=== PATIENT | female | born 2000 | race Two or more races ===

== ENCOUNTER 2019-02-20 10:04 | Emergency (ER) | payer SELFPAY ==
[~2019-02-20] VITALS: Ht 162.6 cm; Wt 49.0 kg
[2019-02-20 10:14] VITALS: BP 129/73
--- NOTE | 2019-02-20 10:40 | PHYS DOC ---
Past Medical History Past Medical History: No Pertinent History Past Surgical History: No Surgical History Alcohol Use: None Drug Use: None Adult General Chief Complaint Chief Complaint: HEADACHE HPI HPI Patient is a 18 year old female presents to the ED complaining of cough �2 days ago. States that she has been coughing up white stuff. She has pain when she coughs. Describes the pain as uncomfortable. Rates the pain as 4 out of 10. Associated symptoms include subjective fever and congestion. Patient does not smoke. Denies headache, sore throat, rash, abdominal pain, nausea/vomiting, diarrhea or dizziness. Review of Systems Review of Systems Constitutional: Complains of subjective fever. Denies chills [] Eyes: Denies change in visual acuity, redness, or eye pain [] HENT: Denies nasal congestion or sore throat [] Respiratory: Complains of cough. Denies shortness of breath [] Cardiovascular: No additional information not addressed in HPI [] GI: Denies abdominal pain, nausea, vomiting, bloody stools or diarrhea [] : Denies dysuria or hematuria [] Musculoskeletal: Denies back pain or joint pain [] Integument: Denies rash or skin lesions [] Neurologic: Denies headache, focal weakness or sensory changes [] All other systems were reviewed and found to be within normal limits, except as documented in this note. Current Medications Current Medications Current Medications Medications (Trade) Dose Ordered Sig/Aleyda Start Time Stop Time Status Last Admin Dose Admin Diphenhydramine HCl (Benadryl) 25 mg 1X ONCE 02/20/19 11:00 02/20/19 11:01 DC 02/20/19 10:51 25 MG Ketorolac Tromethamine (Toradol 30mg Vial) 30 mg 1X ONCE 02/20/19 11:00 02/20/19 11:01 DC 02/20/19 10:51 30 MG Ondansetron HCl (Zofran Odt) 4 mg 1X ONCE 02/20/19 11:00 02/20/19 11:01 DC 02/20/19 10:51 4 MG Allergies Allergies Allergies Coded Allergies Type Severity Reaction Last Updated Verified No Known Drug Allergies 04/25/14 No Physical Exam Physical Exam Constitutional: Well developed, well nourished, no acute distress, non-toxic appearance. [] HENT: Normocephalic, atraumatic, bilateral external ears normal, oropharynx moist, no oral exudates, nose normal. [] Eyes: PERRLA, EOMI, conjunctiva normal, no discharge. [] Neck: Normal range of motion, no tenderness, supple, no stridor. [] Cardiovascular:Heart rate regular rhythm, no murmur [] Lungs & Thorax: Bilateral breath sounds clear to auscultation. Productive cough.[] Abdomen: Bowel sounds normal, soft, no tenderness, no masses, no pulsatile masses. [] Skin: Warm, dry, no erythema, no rash. [] Back: No tenderness, no CVA tenderness. [] Extremities: No tenderness, no cyanosis, no clubbing, ROM intact, no edema. [] Neurologic: Alert and oriented X 3, normal motor function, normal sensory function, no focal deficits noted. [] Psychologic: Affect normal, judgement normal, mood normal. [] Current Patient Data Vital Signs Vital Signs Date Time Temp Pulse Resp B/P (MAP) Pulse Ox O2 Delivery O2 Flow Rate FiO2 02/20/19 10:14 99.9 129 16 129/73 (91) 96 Room Air 99.9 Lab Values Laboratory Tests Test 02/20/19 10:37 POC Urine HCG, Qualitative Hcg negative (Negative) EKG EKG [] Radiology/Procedures Radiology/Procedures PROCEDURE: CHEST AP ONLY EXAM: CHEST 1 VIEW History: Cough COMPARISON: None available. TECHNIQUE: Single portable radiograph of the chest FINDINGS: The cardiac silhouette is unremarkable. Questionable minimal right middle lobe airspace opacities. The costophrenic sulci are clear and well demarcated. IMPRESSION: Questionable minimal right middle lobe airspace opacities likely atelectasis or infiltrate. Follow-up to resolution.[] Course & Med Decision Making Course & Med Decision Making Pertinent Labs and Imaging studies reviewed. (See chart for details) []Discussed imaging findings with patient. Patient's pain improved in the ED. States she's feeling much better. Heart rate improved to low 90's. O2 saturation is 99%. Patient is not tachypneic or tachycardic. We'll treat outpatient with azithromycin, prior inhaler and Tessalon Perles. Discussed symptomatic treatmen t, [id number] medications and follow-up with PCP later this week. Provided contact information/education. Discussed reasons to return to the ED. Patient understands and agrees with plan. Dragon Disclaimer Ward Disclaimer This electronic medical record was generated, in whole or in part, using a voice recognition dictation system. Departure Departure Impression: Primary Impression: Pneumonia Disposition: 01 HOME, SELF-CARE Condition: STABLE Referrals: NO PCP (PCP) Patient Instructions: Pneumonia, Adult Scripts Albuterol Sulfate (Proair Hfa) 8.5 Gm Hfa.aer.ad 1 PUFF INH PRN Q6HRS PRN for SHORTNESS OF BREATH, #1 INHALER Prov: CELINA RIVERA 02/20/19 Benzonatate (TESSALON PERLE) 100 Mg Capsule 1 CAP PO TID, #21 CAP Prov: CELINA RIVERA 02/20/19 Azithromycin (AZITHROMYCIN PACKET) 1 Gm Packet 1 PACKET PO ONCE, #1 PACKET Prov: CELINA RIVERA 02/20/19 CELINA RIVERA Feb 20, 2019 10:40
--- NOTE | 2019-02-20 10:56 | RAD ---
EXAM: CHEST 1 VIEW History: Cough COMPARISON: None available. TECHNIQUE: Single portable radiograph of the chest FINDINGS: The cardiac silhouette is unremarkable. Questionable minimal right middle lobe airspace opacities. The costophrenic sulci are clear and well demarcated. IMPRESSION: Questionable minimal right middle lobe airspace opacities likely atelectasis or infiltrate. Follow-up to resolution. Electronically signed by: Clarence Monahan MD (02/20/2019 10:53 AM) [id number]
[2019-02-20] MEDS ORDERED: KETOROLAC 30 MG/ML VIAL. IM ONE (11:00)
[2019-02-20] MEDS ORDERED: ONDANSETRON ODT 4 MG TAB.RAPDIS. PO ONE (11:00)
[2019-02-20] MEDS ORDERED: diphenhydrAMINE HCL 25 MG CAPSULE PO ONE (11:00)
[2019-02-20] MEDS ORDERED: ALBU2.5V8 INH (11:17)
[2019-02-20] MEDS ORDERED: BENZ100C PO (11:17)
[2019-02-20] MEDS ORDERED: AZIT1PAC9 PO (11:17)
== END 2019-02-20 11:52 | disposition home or self-care (01) ==
LOC: ER 10:04
DX: J18.9 Pneumonia, unspecified organism (principal)
CPT/HCPCS: 71045; 81025; 96372; 99283; J1885; Q0162; Q0163

== ENCOUNTER 2019-02-23 15:37 | Inpatient (IN) | payer SELFPAY ==
[~2019-02-23] VITALS: Ht 162.6 cm; Wt 47.6 kg
[~2019-02-23 15:37] MED LIST: ALBU2.5V8 INH; AZIT1PAC9 PO; BENZ100C PO
[2019-02-23] MEDS ORDERED: cefTRIAXone IV Push 1 GM VIAL. IVP ONE (16:15)
[2019-02-23] MEDS ORDERED: ACETAMINOPHEN 500 MG TABLET PO ONE (16:15)
[2019-02-23 16:19] LABS: BASO % 0 % (0-3); EOS % 0 % (0-3); HEMATOCRIT 41.3 % (36.0-47.0); HEMOGLOBIN 14.4 g/dL (12.0-15.5); LYMPH # 0.9 x10^3/uL (1.0-4.8); LYMPH % 7 % (24-48); MEAN CORPUSCULAR HEMOGLOBIN 30 pg (25-35); MEAN CORPUSCULAR HGB CONC 35 g/dL (31-37); MEAN CORPUSCULAR VOLUME 86 fL (79-100); MONO # 0.3 x10^3/uL (0.0-1.1); MONO % 3 % (0-9); NEUT # 11.1 x10^3/uL (1.8-7.7); NEUT % 90 % (31-73); PLATELET COUNT 383 x10^3/uL (140-400); RED BLOOD COUNT 4.82 x10^6/uL (3.50-5.40); RED CELL DISTRIBUTION WIDTH 12.2 % (11.5-14.5); WHITE BLOOD COUNT 12.4 x10^3/uL (4.0-11.0)
[2019-02-23] MEDS: IV NORMAL SALINE 1000ML BAG 1,000 ML IV SCH ×2 (16:23→17:07)
[2019-02-23 16:35] LABS: CALCIUM 10.1 mg/dL (8.5-10.1); CREATININE 0.8 mg/dL (0.6-1.0); GFR 92.4; POTASSIUM 4.1 mmol/L (3.5-5.1)
[2019-02-23 16:43] LABS: % BANDS 2 % (0-9); % LYMPHS 6 % (24-48); % MONOS 3 % (0-10); % SEGS 89 % (35-66); PLT ESTIMATE ADEQUATE (ADEQUATE)
[2019-02-23 16:53] LABS: ALBUMIN 3.5 g/dL (3.4-5.0); ALBUMIN/GLOBULIN RATIO 0.6 (1.0-1.7); TOTAL BILIRUBIN 0.7 mg/dL (0.2-1.0); TOTAL PROTEIN 9.6 g/dL (6.4-8.2)
--- NOTE | 2019-02-23 17:05 | RAD ---
CHEST PA LATERAL Clinical indications: Fever and cough. COMPARISON: February 20, 2019. Findings: No acute lung infiltrate or pleural effusion or pulmonary edema or lung mass or pneumothorax is seen. The heart size, pulmonary vasculature, mediastinum and both elin are unremarkable. The osseous structures appear intact. Impression: No acute radiographic abnormality is seen. Electronically signed by: Kevin Lund MD (02/23/2019 5:02 PM) [facility]
--- NOTE | 2019-02-23 18:35 | PHYS DOC ---
Past Medical History Past Medical History: No Pertinent History (REGLA MALLOY APRN) Past Surgical History: No Surgical History (REGLA MALLOY APRN) Alcohol Use: None Drug Use: None (REGLA MALLOY APRN) Adult General Chief Complaint Chief Complaint: SHORTNESS OF BREATH HPI HPI Patient is a 18 year old female who presents with shortness of breath and a cough that began 6 days ago. Patient states she was seen in the ED 3 days ago, was diagnosed with pneumonia and sent home on azithromycin. She states the medication is not relieving her symptoms. She states now she has a fever. (REGLA MALLOY APRN) Review of Systems Review of Systems Constitutional: Reports fever Eyes: Denies change in visual acuity, redness, or eye pain [] HENT: Denies nasal congestion or sore throat [] Respiratory: Reports cough and shortness of breath Cardiovascular: No additional information not addressed in HPI [] GI: Denies abdominal pain, nausea, vomiting, bloody stools or diarrhea [] : Denies dysuria or hematuria [] Musculoskeletal: Denies back pain or joint pain [] Integument: Denies rash or skin lesions [] Neurologic: Denies headache, focal weakness or sensory changes [] All other systems were reviewed and found to be within normal limits, except as documented in this note. (REGLA MALLOY APRN) Current Medications Current Medications Current Medications Medications (Trade) Dose Ordered Sig/Aleyda Start Time Stop Time Status Last Admin Dose Admin Acetaminophen (Tylenol) 1,000 mg 1X ONCE 02/23/19 16:15 02/23/19 16:16 DC 02/23/19 16:23 1,000 MG Ceftriaxone Sodium (Rocephin) 1 gm 1X ONCE 02/23/19 16:15 02/23/19 16:16 DC 02/23/19 16:23 1 GM Levofloxacin/ Dextrose 100 ml @ 100 mls/hr 1X ONCE 02/23/19 16:15 02/23/19 17:14 DC 02/23/19 16:23 100 MLS/HR Sodium Chloride 1,000 ml @ 1,000 mls/hr Q1H 02/23/19 16:07 02/23/19 17:45 DC 02/23/19 17:23 1,000 MLS/HR (MILLIE GALEANA DO) Allergies Allergies Allergies Coded Allergies Type Severity Reaction Last Updated Verified No Known Drug Allergies 04/25/14 No (MILLIE GALEANA DO) Physical Exam Physical Exam Constitutional: Well developed, well nourished, no acute distress, non-toxic appearance. [] HENT: Normocephalic, atraumatic, bilateral external ears normal, oropharynx moist, no oral exudates, nose normal. [] Eyes: PERRLA, EOMI, conjunctiva normal, no discharge. [] Neck: Normal range of motion, no tenderness, supple, no stridor. [] Cardiovascular: Tachycardic on arrival to the ED. Lungs & Thorax: Patient is short of breath. Abdomen: Bowel sounds normal, soft, no tenderness, no masses, no pulsatile masses. [] Skin: Warm, dry, no erythema, no rash. [] Back: No tenderness, no CVA tenderness. [] Extremities: No tenderness, no cyanosis, no clubbing, ROM intact, no edema. [] Neurologic: Alert and oriented X 3, normal motor function, normal sensory function, no focal deficits noted. [] Psychologic: Affect normal, judgement normal, mood normal. [] (REGLA MALLOY APRN) Current Patient Data Vital Signs Vital Signs Date Time Temp Pulse Resp B/P (MAP) Pulse Ox O2 Delivery O2 Flow Rate FiO2 02/23/19 18:14 99 14 159/79 (105) 99 Room Air 02/23/19 15:42 99.4 99.4 (MILLIE GALEANA DO) Lab Values Laboratory Tests Test 02/23/19 16:14 White Blood Count 12.4 x10^3/uL (4.0-11.0) H Red Blood Count 4.82 x10^6/uL (3.50-5.40) Hemoglobin 14.4 g/dL (12.0-15.5) Hematocrit 41.3 % (36.0-47.0) Mean Corpuscular Volume 86 fL (79-100) Mean Corpuscular Hemoglobin 30 pg (25-35) Mean Corpuscular Hemoglobin Concent 35 g/dL (31-37) Red Cell Distribution Width 12.2 % (11.5-14.5) Platelet Count 383 x10^3/uL (140-400) Neutrophils (%) (Auto) 90 % (31-73) H Lymphocytes (%) (Auto) 7 % (24-48) L Monocytes (%) (Auto) 3 % (0-9) Eosinophils (%) (Auto) 0 % (0-3) Basophils (%) (Auto) 0 % (0-3) Neutrophils # (Auto) 11.1 x10^3/uL (1.8-7.7) H Lymphocytes # (Auto) 0.9 x10^3/uL (1.0-4.8) L Monocytes # (Auto) 0.3 x10^3/uL (0.0-1.1) Eosinophils # (Auto) 0.0 x10^3/uL (0.0-0.7) Basophils # (Auto) 0.0 x10^3/uL (0.0-0.2) Segmented Neutrophils % 89 % (35-66) H Band Neutrophils % 2 % (0-9) Lymphocytes % 6 % (24-48) L Monocytes % 3 % (0-10) Platelet Estimate Adequate (ADEQUATE) Sodium Level 138 mmol/L (136-145) Potassium Level 4.1 mmol/L (3.5-5.1) Chloride Level 100 mmol/L (98-107) Carbon Dioxide Level 25 mmol/L (21-32) Anion Gap 13 (6-14) Blood Urea Nitrogen 5 mg/dL (7-20) L Creatinine 0.8 mg/dL (0.6-1.0) Estimated GFR (Cockcroft-Gault) 92.4 BUN/Creatinine Ratio 6 (6-20) Glucose Level 105 mg/dL (70-99) H Lactic Acid Level 1.4 mmol/L (0.4-2.0) Calcium Level 10.1 mg/dL (8.5-10.1) Total Bilirubin 0.7 mg/dL (0.2-1.0) Aspartate Amino Transferase (AST) 22 U/L (15-37) Alanine Aminotransferase (ALT) 16 U/L (14-59) Alkaline Phosphatase 85 U/L (46-116) Total Protein 9.6 g/dL (6.4-8.2) H Albumin 3.5 g/dL (3.4-5.0) Albumin/Globulin Ratio 0.6 (1.0-1.7) L Procalcitonin 0.12 ng/mL (0.00-0.10) H Laboratory Tests 02/23/19 16:14 Laboratory Tests 02/23/19 16:14 Microbiology 02/23/19 Blood Culture - Preliminary, Resulted NO GROWTH AFTER 1 DAY (MILLIE GALEANA DO) EKG EKG [] (REGLA MALLOY APRN) Radiology/Procedures Radiology/Procedures []PROCEDURE: CHEST PA & LATERAL CHEST PA LATERAL Clinical indications: Fever and cough. COMPARISON: February 20, 2019. Findings: No acute lung infiltrate or pleural effusion or pulmonary edema or lung mass or pneumothorax is seen. The heart size, pulmonary vasculature, mediastinum and both elin are unremarkable. The osseous structures appear intact. Impression: No acute radiographic abnormality is seen. Electronically signed by: Zoey Lund MD (02/23/2019 5:02 PM) [place] [id number] DICTATED and SIGNED BY: OZEY LUND MD DATE: 02/23/191701 (REGLA MALLOY APRN) Course & Med Decision Making Course & Med Decision Making Pertinent Labs and Imaging studies reviewed. (See chart for details) This is a 18-year-old female patient presented to the ED today with shortness of breath, cough, symptoms began 6 days ago, was seen in the ED 3 days ago, diag nosed with pneumonia, discharged and azithromycin. Presents today with a fever stating symptoms have not improved. CBC with a WBC of 12.4. CMP no acute findings lactic is normal, pro-calcitonin is slightly up at 0.12. Chest x-ray is negative for any acute findings. Temperature 99.4 on arrival to the ED, heart rate 111, BP 129/71 Patient was started on the sepsis protocol including IV fluids and antibiotics. Will be admitted for IV antibiotics. Spoke with Dr. Dixon accepted patient for admission (REGLA MALLOY APRN) Dragon Disclaimer Dragon Disclaimer This electronic medical record was generated, in whole or in part, using a voice recognition dictation system. (REGLA MALLOY APRN) Departure Departure Impression: Primary Impression: Fever Additional Impressions: Shortness of breath Community acquired pneumonia Disposition: ADMITTED INPATIENT Condition: STABLE Referrals: NO PCP (PCP) Attending Signature Attending Signature I have reviewed the PA/MEDICAL INFORMATION SPECIALIST's note and plan of care. I was available for consultation as needed during the patient's visit in the emergency department. I agree with the clinical impression, plan, and disposition. (MILLIE GALEANA DO) Problem Qualifiers Primary Impression: Fever Fever type: unspecified Qualified Codes: R50.9 - Fever, unspecified Additional Impressions: Community acquired pneumonia Laterality: right Lung location: middle lobe of lung Qualified Codes: J18.1 - Lobar pneumonia, unspecified organism REGLA MALLOY APRN Feb 23, 2019 18:35 MILLIE GALEANA DO Feb 24, 2019 18:09
[2019-02-23] MEDS ORDERED: ONDANSETRON PF 4 MG/2 ML VIAL. IV PRN (18:45)
[2019-02-23] MEDS ORDERED: ONDANSETRON PF 4 MG/2 ML VIAL. IV ONE (19:30)
--- NOTE | 2019-02-23 20:00 | NUR ---
ADMISSION Pt admitted to room 569. Assessment completed see assessment. Pt able to walk to bathroom on own. Having dry heaves at this time and requests medication for nausea, gave Zofran. Encouraged patient to refrain from eating or drinking until nausea subsides, pt V/U. Instructed on POC. Denies any needs or concerns at this time.
[2019-02-23] MEDS ORDERED: guaiFENesin/CODEINE 100mg/10mg 5 ML LIQUID PO PRN (22:00)
[2019-02-23] MEDS ORDERED: IPRATRPIUM/ALBUTEROL 0.5/2.5MG 3 ML NEBU. NEB ONE (22:00)
--- NOTE | 2019-02-23 22:01 | PDOC1 ---
History and Physical Date of Admission Date of Admission DATE: 02/23/19 TIME: 21:58 Source Source: Chart review, Patient History of Present Illness History of Present Illness Ms. Hartley, is a 18 year old female who presents with shortness of breath and a cough that began 6 days ago. Patient states she was seen in the ED 3 days ago, was diagnosed with pneumonia and sent home on azithromycin. fever and cough today, she does not feel well, has been nauseated since in the ER. was compliant with azithro. no travel no sick contacts Past Medical History Cardiovascular: No pertinent hx Pulmonary: No pertinent hx GI: No pertinent hx Heme/Onc: No pertinent hx Hepatobiliary: No pertinent hx Family History Family History: No Significant Social History Smoke: No ALCOHOL: none Drugs: None Current Problem List Problem List Problems Medical Problems: (1) Community acquired pneumonia Status: Acute (2) Fever Status: Acute (3) Shortness of breath Status: Acute Current Medications Current Medications Current Medications Sodium Chloride 1,000 ml @ 1,000 mls/hr Q1H IV Last administered on 02/23/19at 17:23; Start 02/23/19 at 16:07; Stop 02/23/19 at 17:45; Status DC Ceftriaxone Sodium (Rocephin) 1 gm 1X ONCE IVP Last administered on 02/23/19at 16:23; Start 02/23/19 at 16:15; Stop 02/23/19 at 16:16; Status DC Levofloxacin/ Dextrose 100 ml @ 100 mls/hr 1X ONCE IV Last administered on 02/23/19at 16:23; Start 02/23/19 at 16:15; Stop 02/23/19 at 17:14; Status DC Acetaminophen (Tylenol) 1,000 mg 1X ONCE PO Last administered on 02/23/19at 16:23; Start 02/23/19 at 16:15; Stop 02/23/19 at 16:16; Status DC Ondansetron HCl (Zofran) 4 mg PRN Q8HRS PRN IV NAUSEA/VOMITING; Start 02/23/19 at 18:45; Stop 02/24/19 at 18:44 Acetaminophen (Tylenol) 650 mg PRN Q4HRS PRN PO FEVER; Start 02/23/19 at 18:45; Stop 02/24/19 at 18:44 Ondansetron HCl (Zofran) 4 mg 1X ONCE IV Last administered on 02/23/19at 20:02; Start 02/23/19 at 19:30; Stop 02/23/19 at 19:31; Status DC Albuterol/ Ipratropium (Duoneb) 3 ml RTQID NEB ; Start 02/24/19 at 08:00 Albuterol/ Ipratropium (Duoneb) 3 ml 1X ONCE NEB ; Start 02/23/19 at 22:00; Stop 02/23/19 at 22:01 Ceftriaxone Sodium (Rocephin) 1 gm Q24H IVP ; Start 02/24/19 at 16:00 Doxycycline Hyclate (Vibra-Tab) 100 mg BID PO ; Start 02/23/19 at 22:00 Active Scripts Active Proair Hfa (Albuterol Sulfate) 8.5 Gm Hfa.aer.ad 1 Puff INH PRN Q6HRS PRN Tessalon Perle (Benzonatate) 100 Mg Capsule 1 Cap PO TID Azithromycin Packet (Azithromycin) 1 Gm Packet 1 Packet PO ONCE Allergies Allergies: Coded Allergies: No Known Drug Allergies (Unverified , 04/25/14) ROS General: YES: Chills, Fatigue, Malaise, Appetite PSYCHOLOGICAL ROS: No: Anxiety, Behavioral Disorder, Concentration difficultie, Decreased libido, Depression, Disorientation, Hallucinations, Hostility, Irritablity, Memory difficulties, Mood Swings, Obsessive thoughts, Other Eyes: No Blurry vision, No Decreased vision, No Double vision, No Dry eyes, No Excessive tearing, No Eye Pain, No Itchy Eyes, No Loss of vision, No Photophobi a, No Scotomata, No Uses contacts, No Uses glasses, No Other HEENT: No: Heacaches, Visual Changes, Hearing change, Nasal congestion, Nasal discharge, Oral lesions, Sinus pain, Sore Throat, Epistaxis, Sneezing, Snoring, Tinnitus, Vertigo, Vocal changes, Other Respiratory: YES: Cough, Shortness of breath, SOB with excertion, Sputum Changes; No: Hemoptysis, Orthopnea, Pleuritic Pain, Stridor, Tachypnea, Wheezing, Other Cardiovascular: No Chest Pain, No Palpitations, No Orthopnea, No Paroxysmal Noc. Dyspnea, No Edema, No Lt Headedness, No Other Gastrointestinal: Yes Nausea, Yes Abdominal Pain; No Vomiting, No Diarrhea, No Constipation, No Melena, No Hematochezia, No Other Genitourinary: No Dysuria, No Frequency, No Incontinence, No Hematuria, No Retention, No Discharge, No Urgency, No Pain, No Flank Pain, No Other, No , No , No , No , No , No , No Musculoskeletal: No Gait Disturbance, No Joint Pain, No Joint Stiffness, No Joint Swelling, No Muscle Pain, No Muscular Weakness, No Pain In:, No Swelling In:, No Other Neurological: No Behavorial Changes, No Bowel/Bladder ControlChng, No Confusion, No Dizziness, No Gait Disturbance, No Headaches, No Impaired Coord/balance, No Memory Loss, No Numbness/Tingling, No Seizures, No Speech Problems, No Tremors, No Visual Changes, No Weakness, No Other Skin: No Dry Skin, No Eczema, No Hair Changes, No Lumps, No Mole Changes, No Mottling, No Nail Changes, No Pruritus, No Rash, No Skin Lesion Changes, No Other, No Acne Physical Exam General: Alert, mild distress HEENT: PERRLA, Mucous membr. moist/pink, Other (tongue is pierced) Lungs: Clear to auscultation, Normal air movement Heart: S1S2, no gallops, no murmurs Abdomen: Normal bowel sounds, Soft Rectal Exam: not examined Extremities: No clubbing, No cyanosis, No edema Skin: No rashes, No significant lesion Neuro: Normal gait, Sensation intact Psych/Mental Status: Mood NL Vitals Vitals Vital Signs Date Time Temp Pulse Resp B/P (MAP) Pulse Ox O2 Delivery O2 Flow Rate FiO2 02/23/19 19:44 103 14 127/44 (71) 99 Room Air 02/23/19 15:42 99.4 99.4 Labs Labs Laboratory Tests Test 02/23/19 16:14 White Blood Count 12.4 x10^3/uL (4.0-11.0) Red Blood Count 4.82 x10^6/uL (3.50-5.40) Hemoglobin 14.4 g/dL (12.0-15.5) Hematocrit 41.3 % (36.0-47.0) Mean Corpuscular Volume 86 fL (79-100) Mean Corpuscular Hemoglobin 30 pg (25-35) Mean Corpuscular Hemoglobin Concent 35 g/dL (31-37) Red Cell Distribution Width 12.2 % (11.5-14.5) Platelet Count 383 x10^3/uL (140-400) Neutrophils (%) (Auto) 90 % (31-73) Lymphocytes (%) (Auto) 7 % (24-48) Monocytes (%) (Auto) 3 % (0-9) Eosinophils (%) (Auto) 0 % (0-3) Basophils (%) (Auto) 0 % (0-3) Neutrophils # (Auto) 11.1 x10^3/uL (1.8-7.7) Lymphocytes # (Auto) 0.9 x10^3/uL (1.0-4.8) Monocytes # (Auto) 0.3 x10^3/uL (0.0-1.1) Eosinophils # (Auto) 0.0 x10^3/uL (0.0-0.7) Basophils # (Auto) 0.0 x10^3/uL (0.0-0.2) Segmented Neutrophils % 89 % (35-66) Band Neutrophils % 2 % (0-9) Lymphocytes % 6 % (24-48) Monocytes % 3 % (0-10) Platelet Estimate Adequate (ADEQUATE) Sodium Level 138 mmol/L (136-145) Potassium Level 4.1 mmol/L (3.5-5.1) Chloride Level 100 mmol/L (98-107) Carbon Dioxide Level 25 mmol/L (21-32) Anion Gap 13 (6-14) Blood Urea Nitrogen 5 mg/dL (7-20) Creatinine 0.8 mg/dL (0.6-1.0) Estimated GFR (Cockcroft-Gault) 92.4 BUN/Creatinine Ratio 6 (6-20) Glucose Level 105 mg/dL (70-99) Lactic Acid Level 1.4 mmol/L (0.4-2.0) Calcium Level 10.1 mg/dL (8.5-10.1) Total Bilirubin 0.7 mg/dL (0.2-1.0) Aspartate Amino Transf (AST/SGOT) 22 U/L (15-37) Alanine Aminotransferase (ALT/SGPT) 16 U/L (14-59) Alkaline Phosphatase 85 U/L (46-116) Total Protein 9.6 g/dL (6.4-8.2) Albumin 3.5 g/dL (3.4-5.0) Albumin/Globulin Ratio 0.6 (1.0-1.7) Procalcitonin 0.12 ng/mL (0.00-0.10) Laboratory Tests Test 02/23/19 16:14 White Blood Count 12.4 x10^3/uL (4.0-11.0) Red Blood Count 4.82 x10^6/uL (3.50-5.40) Hemoglobin 14.4 g/dL (12.0-15.5) Hematocrit 41.3 % (36.0-47.0) Mean Corpuscular Volume 86 fL (79-100) Mean Corpuscular Hemoglobin 30 pg (25-35) Mean Corpuscular Hemoglobin Concent 35 g/dL (31-37) Red Cell Distribution Width 12.2 % (11.5-14.5) Platelet Count 383 x10^3/uL (140-400) Neutrophils (%) (Auto) 90 % (31-73) Lymphocytes (%) (Auto) 7 % (24-48) Monocytes (%) (Auto) 3 % (0-9) Eosinophils (%) (Auto) 0 % (0-3) Basophils (%) (Auto) 0 % (0-3) Neutrophils # (Auto) 11.1 x10^3/uL (1.8-7.7) Lymphocytes # (Auto) 0.9 x10^3/uL (1.0-4.8) Monocytes # (Auto) 0.3 x10^3/uL (0.0-1.1) Eosinophils # (Auto) 0.0 x10^3/uL (0.0-0.7) Basophils # (Auto) 0.0 x10^3/uL (0.0-0.2) Segmented Neutrophils % 89 % (35-66) Band Neutrophils % 2 % (0-9) Lymphocytes % 6 % (24-48) Monocytes % 3 % (0-10) Platelet Estimate Adequate (ADEQUATE) Sodium Level 138 mmol/L (136-145) Potassium Level 4.1 mmol/L (3.5-5.1) Chloride Level 100 mmol/L (98-107) Carbon Dioxide Level 25 mmol/L (21-32) Anion Gap 13 (6-14) Blood Urea Nitrogen 5 mg/dL (7-20) Creatinine 0.8 mg/dL (0.6-1.0) Estimated GFR (Cockcroft-Gault) 92.4 BUN/Creatinine Ratio 6 (6-20) Glucose Level 105 mg/dL (70-99) Lactic Acid Level 1.4 mmol/L (0.4-2.0) Calcium Level 10.1 mg/dL (8.5-10.1) Total Bilirubin 0.7 mg/dL (0.2-1.0) Aspartate Amino Transf (AST/SGOT) 22 U/L (15-37) Alanine Aminotransferase (ALT/SGPT) 16 U/L (14-59) Alkaline Phosphatase 85 U/L (46-116) Total Protein 9.6 g/dL (6.4-8.2) Albumin 3.5 g/dL (3.4-5.0) Albumin/Globulin Ratio 0.6 (1.0-1.7) Procalcitonin 0.12 ng/mL (0.00-0.10) VTE Prophylaxis Ordered VTE Prophylaxis Devices: No VTE Pharmacological Prophylaxi: No Assessment/Plan Assessment/Plan SIRS, fever at home and tachycardia pneumonia, nausea and vomiting admit PULM consult DAGMAR DUVALL MD Feb 23, 2019 22:01
[2019-02-23] MEDS: DOXYCYCLINE HYCLATE 100 MG TABLET PO SCH (22:14)
[2019-02-23 23:00] VITALS: BP 121/82
--- NOTE | 2019-02-23 23:42 | NUR ---
SEPSIS SCREEN POSITIVE NOTIFIED ZAIRA CASTELLANOS IN ICU OF POSITIVE SEPSIS SCREEN NO NEW ORDERS OR RECOMMENDATIONS AT THIS TIME.
[2019-02-23] MEDS: ACETAMINOPHEN 325 MG TABLET. PO PRN (23:56)
[2019-02-24 03:00] VITALS: BP 116/71
[2019-02-24 07:00] VITALS: BP 116/70
[2019-02-24 07:10] LABS: BASO % 0 % (0-3); EOS % 0 % (0-3); HEMATOCRIT 37.3 % (36.0-47.0); HEMOGLOBIN 12.8 g/dL (12.0-15.5); LYMPH # 0.9 x10^3/uL (1.0-4.8); LYMPH % 9 % (24-48); MEAN CORPUSCULAR HEMOGLOBIN 30 pg (25-35); MEAN CORPUSCULAR HGB CONC 34 g/dL (31-37); MEAN CORPUSCULAR VOLUME 86 fL (79-100); MONO # 0.3 x10^3/uL (0.0-1.1); MONO % 3 % (0-9); NEUT # 8.8 x10^3/uL (1.8-7.7); NEUT % 88 % (31-73); PLATELET COUNT 367 x10^3/uL (140-400); RED BLOOD COUNT 4.33 x10^6/uL (3.50-5.40); RED CELL DISTRIBUTION WIDTH 12.6 % (11.5-14.5); WHITE BLOOD COUNT 10.1 x10^3/uL (4.0-11.0)
[2019-02-24] MEDS: IPRATRPIUM/ALBUTEROL 0.5/2.5MG 3 ML NEBU. NEB SCH ×4 (07:30→19:44)
[2019-02-24] MEDS: ACETAMINOPHEN 325 MG TABLET. PO PRN (08:43)
[2019-02-24] MEDS: DOXYCYCLINE HYCLATE 100 MG TABLET PO SCH ×2 (08:43→21:27)
--- NOTE | 2019-02-24 10:23 | NUR ---
PATIENT VOICES COMPLAINTS OF NAUSEA AND INFORMED THIS SENIOR FIRMWARE ENGINEER THAT SHE HAD EMESIS AFTER EATING, THIS WAS NOT OBSERVED PER THIS SENIOR FIRMWARE ENGINEER AND PATIENT CONSUMED APPROX. 10% OF BREAKFAST. ZOFRAN GIVEN ORDERED, WILL MONITOR.
--- NOTE | 2019-02-24 10:55 | NUR ---
BOTTLE OF PRESCRIPTION TESSALON PEARLS AND AN ALBUTEROL INHALER NOTICED ON PATIENTS' BEDSIDE TABLE, THIS SAND SYSTEM OPERATOR ENCOURAGED PATIENT TO NOT TAKE MEDICATIONS FROM HOME AND THAT I WOULD INFORM THE DOCTOR TO ORDER THEM IF NEEDED, PATIENT AGREED AND PLACED MEDS IN HER BACKPACK.
--- NOTE | 2019-02-24 10:58 | NUR ---
SW following pt for dc needs. Chart reviewed and discussed with RN. Pt lives at home with family and Pulmonary consulted. Pt is also self pay and [facility] will be following. Will continue to follow pt pending dc needs.
[2019-02-24 10:59] VITALS: BP 104/76
--- NOTE | 2019-02-24 12:04 | PDOC ---
[facility] [facility] PROGRESS NOTE Chief Complaint Chief Complaint Community acquired pneumonia Fever SOB Nausea & vomiting History of Present Illness History of Present Illness 02/24/19 Pt seen and examined (well-appearing; in no acute distress) Chart reviewed STEPHEN RN Vitals/I&O Vitals/I&O: Vital Signs Date Time Temp Pulse Resp B/P (MAP) Pulse Ox O2 Delivery O2 Flow Rate FiO2 02/24/19 11:12 96 Room Air 02/24/19 10:59 98.9 116 16 104/76 (85) 98.9 I & O 02/23/19 02/23/19 02/24/19 14:59 22:59 06:59 Intake Total 1100 ml 480 ml Balance 1100 ml 480 ml Physical Exam General: Alert, No acute distress Heart: Regular rate, No murmurs Lungs: Crackles Abdomen: Normal bowel sounds, Soft Extremities: No clubbing, No cyanosis, No edema Skin: No rashes, No significant lesion Labs Labs: Laboratory Tests Test 02/23/19 16:14 02/23/19 23:00 02/24/19 05:35 White Blood Count 12.4 x10^3/uL (4.0-11.0) 10.1 x10^3/uL (4.0-11.0) Red Blood Count 4.82 x10^6/uL (3.50-5.40) 4.33 x10^6/uL (3.50-5.40) Hemoglobin 14.4 g/dL (12.0-15.5) 12.8 g/dL (12.0-15.5) Hematocrit 41.3 % (36.0-47.0) 37.3 % (36.0-47.0) Mean Corpuscular Volume 86 fL (79-100) 86 fL (79-100) Mean Corpuscular Hemoglobin 30 pg (25-35) 30 pg (25-35) Mean Corpuscular Hemoglobin Concent 35 g/dL (31-37) 34 g/dL (31-37) Red Cell Distribution Width 12.2 % (11.5-14.5) 12.6 % (11.5-14.5) Platelet Count 383 x10^3/uL (140-400) 367 x10^3/uL (140-400) Neutrophils (%) (Auto) 90 % (31-73) 88 % (31-73) Lymphocytes (%) (Auto) 7 % (24-48) 9 % (24-48) Monocytes (%) (Auto) 3 % (0-9) 3 % (0-9) Eosinophils (%) (Auto) 0 % (0-3) 0 % (0-3) Basophils (%) (Auto) 0 % (0-3) 0 % (0-3) Neutrophils # (Auto) 11.1 x10^3/uL (1.8-7.7) 8.8 x10^3/uL (1.8-7.7) Lymphocytes # (Auto) 0.9 x10^3/uL (1.0-4.8) 0.9 x10^3/uL (1.0-4.8) Monocytes # (Auto) 0.3 x10^3/uL (0.0-1.1) 0.3 x10^3/uL (0.0-1.1) Eosinophils # (Auto) 0.0 x10^3/uL (0.0-0.7) 0.0 x10^3/uL (0.0-0.7) Basophils # (Auto) 0.0 x10^3/uL (0.0-0.2) 0.0 x10^3/uL (0.0-0.2) Segmented Neutrophils % 89 % (35-66) Band Neutrophils % 2 % (0-9) Lymphocytes % 6 % (24-48) Monocytes % 3 % (0-10) Platelet Estimate Adequate (ADEQUATE) Sodium Level 138 mmol/L (136-145) Potassium Level 4.1 mmol/L (3.5-5.1) Chloride Level 100 mmol/L (98-107) Carbon Dioxide Level 25 mmol/L (21-32) Anion Gap 13 (6-14) Blood Urea Nitrogen 5 mg/dL (7-20) Creatinine 0.8 mg/dL (0.6-1.0) Estimated GFR (Cockcroft-Gault) 92.4 BUN/Creatinine Ratio 6 (6-20) Glucose Level 105 mg/dL (70-99) Lactic Acid Level 1.4 mmol/L (0.4-2.0) 0.9 mmol/L (0.4-2.0) Calcium Level 10.1 mg/dL (8.5-10.1) Total Bilirubin 0.7 mg/dL (0.2-1.0) Aspartate Amino Transf (AST/SGOT) 22 U/L (15-37) Alanine Aminotransferase (ALT/SGPT) 16 U/L (14-59) Alkaline Phosphatase 85 U/L (46-116) Total Protein 9.6 g/dL (6.4-8.2) Albumin 3.5 g/dL (3.4-5.0) Albumin/Globulin Ratio 0.6 (1.0-1.7) Procalcitonin 0.12 ng/mL (0.00-0.10) Review of Systems Review of Systems: No hemoptysis No chest pain No headache Assessment and Plan Assessmemt and Plan Problems Medical Problems: (1) Community acquired pneumonia Status: Acute (2) Fever Status: Acute (3) Shortness of breath Status: Acute Assessment: Community acquired pneumonia Fever SOB Nausea & vomiting Plan: IV antibiotics Await pulmonology consult (Dr. Orozco) Encourage PO intake PT/OT DVT prophylaxis Full code Comment Review of Relevant I have reviewed the following items seng (where applicable) has been applied. Medications: Current Medications Medications (Trade) Dose Ordered Sig/Aleyda Route PRN Reason Start Time Stop Time Status Last Admin Dose Admin Sodium Chloride 1,000 ml @ 1,000 mls/hr Q1H IV 02/23/19 16:07 02/23/19 17:45 DC 02/23/19 17:23 Ceftriaxone Sodium (Rocephin) 1 gm 1X ONCE IVP 02/23/19 16:15 02/23/19 16:16 DC 02/23/19 16:23 Levofloxacin/ Dextrose 100 ml @ 100 mls/hr 1X ONCE IV 02/23/19 16:15 02/23/19 17:14 DC 02/23/19 16:23 Acetaminophen (Tylenol) 1,000 mg 1X ONCE PO 02/23/19 16:15 02/23/19 16:16 DC 02/23/19 16:23 Ondansetron HCl (Zofran) 4 mg PRN Q8HRS PRN IV NAUSEA/VOMITING 02/23/19 18:45 02/24/19 18:44 02/24/19 10:23 Acetaminophen (Tylenol) 650 mg PRN Q4HRS PRN PO FEVER 02/23/19 18:45 02/24/19 18:44 02/24/19 08:44 Ondansetron HCl (Zofran) 4 mg 1X ONCE IV 02/23/19 19:30 02/23/19 19:31 DC 02/23/19 20:02 Albuterol/ Ipratropium (Duoneb) 3 ml RTQID NEB 02/24/19 08:00 02/24/19 11:11 Doxycycline Hyclate (Vibra-Tab) 100 mg BID PO 02/23/19 22:00 02/24/19 08:44 MILKA EVANS III DO Feb 24, 2019 12:03
[2019-02-24 15:00] VITALS: BP 121/73
[2019-02-24] MEDS: cefTRIAXone IV Push 1 GM VIAL. IVP SCH (16:26)
--- NOTE | 2019-02-24 17:53 | PDOC ---
PULMONARY PROGRESS NOTES Vitals Vital Signs Date Time Temp Pulse Resp B/P (MAP) Pulse Ox O2 Delivery O2 Flow Rate FiO2 02/24/19 17:01 98 Room Air 02/24/19 15:00 99.1 104 16 121/73 (89) 99.1 Lungs: Crackles Labs Laboratory Tests Test 02/23/19 16:14 02/23/19 23:00 02/24/19 05:35 White Blood Count 12.4 x10^3/uL (4.0-11.0) 10.1 x10^3/uL (4.0-11.0) Red Blood Count 4.82 x10^6/uL (3.50-5.40) 4.33 x10^6/uL (3.50-5.40) Hemoglobin 14.4 g/dL (12.0-15.5) 12.8 g/dL (12.0-15.5) Hematocrit 41.3 % (36.0-47.0) 37.3 % (36.0-47.0) Mean Corpuscular Volume 86 fL (79-100) 86 fL (79-100) Mean Corpuscular Hemoglobin 30 pg (25-35) 30 pg (25-35) Mean Corpuscular Hemoglobin Concent 35 g/dL (31-37) 34 g/dL (31-37) Red Cell Distribution Width 12.2 % (11.5-14.5) 12.6 % (11.5-14.5) Platelet Count 383 x10^3/uL (140-400) 367 x10^3/uL (140-400) Neutrophils (%) (Auto) 90 % (31-73) 88 % (31-73) Lymphocytes (%) (Auto) 7 % (24-48) 9 % (24-48) Monocytes (%) (Auto) 3 % (0-9) 3 % (0-9) Eosinophils (%) (Auto) 0 % (0-3) 0 % (0-3) Basophils (%) (Auto) 0 % (0-3) 0 % (0-3) Neutrophils # (Auto) 11.1 x10^3/uL (1.8-7.7) 8.8 x10^3/uL (1.8-7.7) Lymphocytes # (Auto) 0.9 x10^3/uL (1.0-4.8) 0.9 x10^3/uL (1.0-4.8) Monocytes # (Auto) 0.3 x10^3/uL (0.0-1.1) 0.3 x10^3/uL (0.0-1.1) Eosinophils # (Auto) 0.0 x10^3/uL (0.0-0.7) 0.0 x10^3/uL (0.0-0.7) Basophils # (Auto) 0.0 x10^3/uL (0.0-0.2) 0.0 x10^3/uL (0.0-0.2) Segmented Neutrophils % 89 % (35-66) Band Neutrophils % 2 % (0-9) Lymphocytes % 6 % (24-48) Monocytes % 3 % (0-10) Platelet Estimate Adequate (ADEQUATE) Sodium Level 138 mmol/L (136-145) Potassium Level 4.1 mmol/L (3.5-5.1) Chloride Level 100 mmol/L (98-107) Carbon Dioxide Level 25 mmol/L (21-32) Anion Gap 13 (6-14) Blood Urea Nitrogen 5 mg/dL (7-20) Creatinine 0.8 mg/dL (0.6-1.0) Estimated GFR (Cockcroft-Gault) 92.4 BUN/Creatinine Ratio 6 (6-20) Glucose Level 105 mg/dL (70-99) Lactic Acid Level 1.4 mmol/L (0.4-2.0) 0.9 mmol/L (0.4-2.0) Calcium Level 10.1 mg/dL (8.5-10.1) Total Bilirubin 0.7 mg/dL (0.2-1.0) Aspartate Amino Transf (AST/SGOT) 22 U/L (15-37) Alanine Aminotransferase (ALT/SGPT) 16 U/L (14-59) Alkaline Phosphatase 85 U/L (46-116) Total Protein 9.6 g/dL (6.4-8.2) Albumin 3.5 g/dL (3.4-5.0) Albumin/Globulin Ratio 0.6 (1.0-1.7) Procalcitonin 0.12 ng/mL (0.00-0.10) Laboratory Tests Test 02/23/19 23:00 02/24/19 05:35 Lactic Acid Level 0.9 mmol/L (0.4-2.0) White Blood Count 10.1 x10^3/uL (4.0-11.0) Red Blood Count 4.33 x10^6/uL (3.50-5.40) Hemoglobin 12.8 g/dL (12.0-15.5) Hematocrit 37.3 % (36.0-47.0) Mean Corpuscular Volume 86 fL (79-100) Mean Corpuscular Hemoglobin 30 pg (25-35) Mean Corpuscular Hemoglobin Concent 34 g/dL (31-37) Red Cell Distribution Width 12.6 % (11.5-14.5) Platelet Count 367 x10^3/uL (140-400) Neutrophils (%) (Auto) 88 % (31-73) Lymphocytes (%) (Auto) 9 % (24-48) Monocytes (%) (Auto) 3 % (0-9) Eosinophils (%) (Auto) 0 % (0-3) Basophils (%) (Auto) 0 % (0-3) Neutrophils # (Auto) 8.8 x10^3/uL (1.8-7.7) Lymphocytes # (Auto) 0.9 x10^3/uL (1.0-4.8) Monocytes # (Auto) 0.3 x10^3/uL (0.0-1.1) Eosinophils # (Auto) 0.0 x10^3/uL (0.0-0.7) Basophils # (Auto) 0.0 x10^3/uL (0.0-0.2) Medications Active Scripts Medications Dose Route/Sig Max Daily Dose Days Date Category Proair Hfa (Albuterol Sulfate) 8.5 Gm Hfa.aer.ad 1 Puff INH PRN Q6HRS PRN 02/20/19 Rx Tessalon Perle (Benzonatate) 100 Mg Capsule 1 Cap PO TID 02/20/19 Rx Azithromycin Packet (Azithromycin) 1 Gm Packet 1 Packet PO ONCE 02/20/19 Rx Impression . NOTE DICTATED THANKS ACUTE BRONCHITIS OK TO D/C FLOYD BOX MD Feb 24, 2019 17:53
[2019-02-24 19:00] VITALS: BP 126/84
[2019-02-24] MEDS: LACTOBACILLUS RHAMNOSUS GG 1 CAPSULE. PO SCH (21:27)
[2019-02-24 23:00] VITALS: BP 115/77
--- NOTE | 2019-02-24 23:34 | CONS ---
DATE OF CONSULTATION: 02/24/2019 REFERRING PHYSICIAN: DAGMAR DUVALL MD REASON FOR CONSULTATION: The patient seen in pulmonary consultation at the request of Dr. Duvall for possible pneumonia. HISTORY OF PRESENT ILLNESS: The patient is a 18-year-old that has presented to the Emergency Room now on several occasions when I asked her why she came in, she states that she was having some hot flashes, palpitations and increasing shortness of breath. She denies any illicit drug use. She has had asthma as a child in the past, but is currently not being treated. She was not wheezing, not coughing. She denies fever, chills or night sweats. Chest x-ray was obtained. I reviewed it. There was no evidence of infiltrate. PAST MEDICAL HISTORY: Unremarkable. PAST SURGICAL HISTORY: None. REVIEW OF SYSTEMS: As indicated above, otherwise other systems were reviewed, the patient did admit to being anxious and depressed. She states that she has looked up depression and she feels like she meets the criteria. MEDICATIONS: Medication list was reviewed. PHYSICAL EXAMINATION: VITAL SIGNS: Stable. O2 saturation was greater than 92%. HEENT: Eyes, the sclerae were nonicteric. NECK: Jugular venous distention was not elevated. LUNGS: Clear. No wheezes. CARDIOVASCULAR: Regular rate and rhythm with S1 and S2, no S3. ABDOMEN: Soft, nontender, nondistended. EXTREMITIES: No clubbing, cyanosis or edema. LABORATORY AND DIAGNOSTIC DATA: Reviewed. White count was normal. Electrolytes were noted. Procalcitonin was low. Chest x-ray reviewed, no acute cardiopulmonary process. IMPRESSION: 1. Acute bronchitis. 2. Dyspnea, tachycardia related to possibility of anxiety. 3. Possible depression. PLAN: Okay to discharge the patient home from my standpoint of view. The patient was instructed to discuss her anxiety and possible depression with PCP. FLOYD BOX MD DR: MAXINE/sean JOB#: [id number] / [id number]
[2019-02-25 03:00] VITALS: BP 111/65
[2019-02-25 07:00] VITALS: BP 112/68
[2019-02-25 07:14] LABS: BASO % 0 % (0-3); EOS % 0 % (0-3); HEMOGLOBIN 12.8 g/dL (12.0-15.5); LYMPH # 0.9 x10^3/uL (1.0-4.8); LYMPH % 8 % (24-48); MEAN CORPUSCULAR HEMOGLOBIN 30 pg (25-35); MEAN CORPUSCULAR HGB CONC 35 g/dL (31-37); MEAN CORPUSCULAR VOLUME 86 fL (79-100); MONO # 0.4 x10^3/uL (0.0-1.1); MONO % 4 % (0-9); NEUT # 9.4 x10^3/uL (1.8-7.7); NEUT % 87 % (31-73); PLATELET COUNT 414 x10^3/uL (140-400); RED BLOOD COUNT 4.31 x10^6/uL (3.50-5.40); RED CELL DISTRIBUTION WIDTH 12.3 % (11.5-14.5); WHITE BLOOD COUNT 10.7 x10^3/uL (4.0-11.0)
[2019-02-25] MEDS: IPRATRPIUM/ALBUTEROL 0.5/2.5MG 3 ML NEBU. NEB SCH ×4 (07:19→20:15)
[2019-02-25 07:27] LABS: CALCIUM 9.3 mg/dL (8.5-10.1); CREATININE 0.7 mg/dL (0.6-1.0); GFR 107.8; POTASSIUM 3.4 mmol/L (3.5-5.1)
[2019-02-25] MEDS: DOXYCYCLINE HYCLATE 100 MG TABLET PO SCH ×2 (09:08→21:19)
[2019-02-25] MEDS: LACTOBACILLUS RHAMNOSUS GG 1 CAPSULE. PO SCH ×2 (09:08→21:19)
[2019-02-25 11:00] VITALS: BP 110/68
--- NOTE | 2019-02-25 12:14 | PDOC ---
[facility] [facility] PROGRESS NOTE Chief Complaint Chief Complaint Community acquired pneumonia Fever SOB Nausea & vomiting History of Present Illness History of Present Illness 02/25/19 Patient seen and examined Clinically she looks good but she is tachycardic at 110 bpm Discussed with RN Suspect she would benefit from some metoprolol but would like to consult cardiology first to see what they think Probably discharge later today if she is stable 02/24/19 Pt seen and examined (well-appearing; in no acute distress) Chart reviewed DW RN Vitals/I&O Vitals/I&O: Vital Signs Date Time Temp Pulse Resp B/P (MAP) Pulse Ox O2 Delivery O2 Flow Rate FiO2 02/25/19 11:26 97 Room Air 02/25/19 11:00 99.2 110 16 110/68 (82) 99.2 I & O 02/24/19 02/24/19 02/25/19 15:00 23:00 07:00 Intake Total 150 ml 50 ml 930 ml Balance 150 ml 50 ml 930 ml Physical Exam General: Alert, No acute distress Heart: Regular rate, No murmurs Lungs: Crackles Abdomen: Normal bowel sounds, Soft Extremities: No clubbing, No cyanosis, No edema Skin: No rashes, No significant lesion Labs Labs: Laboratory Tests Test 02/25/19 05:34 White Blood Count 10.7 x10^3/uL (4.0-11.0) Red Blood Count 4.31 x10^6/uL (3.50-5.40) Hemoglobin 12.8 g/dL (12.0-15.5) Hematocrit 37.0 % (36.0-47.0) Mean Corpuscular Volume 86 fL (79-100) Mean Corpuscular Hemoglobin 30 pg (25-35) Mean Corpuscular Hemoglobin Concent 35 g/dL (31-37) Red Cell Distribution Width 12.3 % (11.5-14.5) Platelet Count 414 x10^3/uL (140-400) Neutrophils (%) (Auto) 87 % (31-73) Lymphocytes (%) (Auto) 8 % (24-48) Monocytes (%) (Auto) 4 % (0-9) Eosinophils (%) (Auto) 0 % (0-3) Basophils (%) (Auto) 0 % (0-3) Neutrophils # (Auto) 9.4 x10^3/uL (1.8-7.7) Lymphocytes # (Auto) 0.9 x10^3/uL (1.0-4.8) Monocytes # (Auto) 0.4 x10^3/uL (0.0-1.1) Eosinophils # (Auto) 0.0 x10^3/uL (0.0-0.7) Basophils # (Auto) 0.0 x10^3/uL (0.0-0.2) Sodium Level 140 mmol/L (136-145) Potassium Level 3.4 mmol/L (3.5-5.1) Chloride Level 101 mmol/L (98-107) Carbon Dioxide Level 26 mmol/L (21-32) Anion Gap 13 (6-14) Blood Urea Nitrogen 5 mg/dL (7-20) Creatinine 0.7 mg/dL (0.6-1.0) Estimated GFR (Cockcroft-Gault) 107.8 Glucose Level 97 mg/dL (70-99) Calcium Level 9.3 mg/dL (8.5-10.1) Assessment and Plan Assessmemt and Plan Problems Medical Problems: (1) Community acquired pneumonia Status: Acute (2) Fever Status: Acute (3) Shortness of breath Status: Acute Consult cardiology Hope to discharge later today Comment Review of Relevant I have reviewed the following items seng (where applicable) has been applied. Medications: Current Medications Medications (Trade) Dose Ordered Sig/Aleyda Route PRN Reason Start Time Stop Time Status Last Admin Dose Admin Ceftriaxone Sodium (Rocephin) 1 gm Q24H IVP 02/24/19 16:00 02/24/19 16:26 Lactobacillus Rhamnosus (Culturelle) 1 cap BID PO 02/24/19 21:00 02/25/19 09:08 MILKA EVANS III DO Feb 25, 2019 12:14
[2019-02-25] MEDS: ONDANSETRON PF 4 MG/2 ML VIAL. IV PRN ×2 (14:21→22:01)
[2019-02-25 15:00] VITALS: BP 115/79
--- NOTE | 2019-02-25 16:03 | EKG ---
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
[2019-02-25] MEDS: cefTRIAXone IV Push 1 GM VIAL. IVP SCH (17:36)
--- NOTE | 2019-02-25 18:20 | DS ---
DATE OF DISCHARGE: 02/25/2019 ADMISSION DIAGNOSIS: Pneumonia. DISCHARGE DIAGNOSES: Resolving pneumonia, resolving tachycardia. CONSULTS: Pulmonary Medicine and Cardiology. PROCEDURES: None. HOSPITAL COURSE: The patient is a pleasant, healthy young female, who presented with shortness of breath and cough. She appeared to have pneumonia on chest x-ray. She was admitted. We did consult Cardiology and Pulmonary. She got intravenous antibiotics and breathing treatments, and was doing well. I saw her and examined her this morning, but her pulse was tachycardic at 110. She states she has had problems with this off and on for years. I suspect she might have some idiopathic tachycardia. I wanted to put her on some beta-fred, but would like to have Cardiology see her first and see if they agree. If they agree, we are going to let her go this afternoon probably on some beta blockade. DISPOSITION: Home. ACTIVITY: As tolerated. DIET: Low sodium. MEDICATIONS: Please see the MRAD. TOTAL TIME: 34 minutes. MILKA EVANS DO DR: HUNTER/sean JOB#: [id number] / [id number]
[2019-02-25 21:00] VITALS: BP 127/84
[2019-02-25] MEDS: ALPRAZolam 0.5 MG TABLET PO PRN ×2 (22:05→22:27)
--- NOTE | 2019-02-25 22:28 | NUR ---
pt vomited the first xanax given, another dose given at this time. will continue to monitor pt.
[2019-02-25 23:52] VITALS: BP 114/66
[2019-02-26 03:31] VITALS: BP 103/64
[2019-02-26] MEDS: IPRATRPIUM/ALBUTEROL 0.5/2.5MG 3 ML NEBU. NEB SCH ×3 (07:25→16:20)
[2019-02-26 07:58] VITALS: BP 140/99
--- NOTE | 2019-02-26 07:58 | EKG ---
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
[2019-02-26] MEDS: ALPRAZolam 0.5 MG TABLET PO PRN (08:10)
[2019-02-26] MEDS: DOXYCYCLINE HYCLATE 100 MG TABLET PO SCH (08:10)
[2019-02-26] MEDS: LACTOBACILLUS RHAMNOSUS GG 1 CAPSULE. PO SCH (08:10)
[2019-02-26 08:40] VITALS: BP 113/78
[2019-02-26 08:41] LABS: BASO % 0 % (0-3); EOS # 0.1 x10^3/uL (0.0-0.7); EOS % 1 % (0-3); HEMATOCRIT 34.1 % (36.0-47.0); HEMOGLOBIN 11.7 g/dL (12.0-15.5); LYMPH # 1.6 x10^3/uL (1.0-4.8); LYMPH % 27 % (24-48); MEAN CORPUSCULAR HEMOGLOBIN 30 pg (25-35); MEAN CORPUSCULAR HGB CONC 34 g/dL (31-37); MEAN CORPUSCULAR VOLUME 86 fL (79-100); MONO # 0.3 x10^3/uL (0.0-1.1); MONO % 6 % (0-9); NEUT # 3.9 x10^3/uL (1.8-7.7); NEUT % 66 % (31-73); PLATELET COUNT 479 x10^3/uL (140-400); RED BLOOD COUNT 3.95 x10^6/uL (3.50-5.40); RED CELL DISTRIBUTION WIDTH 11.9 % (11.5-14.5); WHITE BLOOD COUNT 5.9 x10^3/uL (4.0-11.0)
[2019-02-26] MEDS ORDERED: FLUoxetine HCL 20 MG CAPSULE PO SCH (09:00)
--- NOTE | 2019-02-26 09:21 | NUR ---
AT 0731 patient received scheduled breathing treatment. Heart rate increased to SVT 150s-170s. Dr. Shepard notified and stat EKG taken. Dr. Shepard ordered for patient to transfer to [facility] for closer monitoring. Patient denied chest pain or discomfort and only described that she was feeling anxious. Heart rate remained >140s prior to transfer at 0830 with occasional decrease to 120s for brief periods. Report called to Velma SUAREZ and patient transported via wheelchair with family present.
[2019-02-26 09:37] LABS: CALCIUM 9.5 mg/dL (8.5-10.1); CREATININE 0.7 mg/dL (0.6-1.0); GFR 107.8; POTASSIUM 3.7 mmol/L (3.5-5.1)
[2019-02-26 11:00] VITALS: BP 112/85
[2019-02-26] MEDS ORDERED: METOPROLOL TART IMMED RELEASE 25 MG TABLET. PO SCH (11:30)
--- NOTE | 2019-02-26 13:32 | PDOC ---
[facility] [facility] PROGRESS NOTE Chief Complaint Chief Complaint Community acquired pneumonia White coat syndrome Anxiety Fever SOB Nausea & vomiting History of Present Illness History of Present Illness 02/26/19 Pt seen and examined Clinically, pt appears well (HR was stable but jumped upon walking into the [place]; suspect white coat syndrome given anxiety hx) Chart reviewed DW RN 02/25/19 Patient seen and examined Clinically she looks good but she is tachycardic at 110 bpm Discussed with RN Suspect she would benefit from some metoprolol but would like to consult cardiology first to see what they think Probably discharge later today if she is stable 02/24/19 Pt seen and examined (well-appearing; in no acute distress) Chart reviewed DW RN Vitals/I&O Vitals/I&O: Vital Signs Date Time Temp Pulse Resp B/P (MAP) Pulse Ox O2 Delivery O2 Flow Rate FiO2 02/26/19 13:09 Room Air 02/26/19 12:23 109 103/65 02/26/19 11:00 97.7 16 98 97.7 I & O 02/25/19 02/25/19 02/26/19 15:00 23:00 07:00 Intake Total 120 ml 400 ml 300 ml Output Total 25 ml Balance 120 ml 400 ml 275 ml Physical Exam General: Alert, No acute distress Heart: Regular rate, No murmurs Lungs: Crackles Abdomen: Normal bowel sounds, Soft Extremities: No clubbing, No cyanosis, No edema Skin: No rashes, No significant lesion Labs Labs: Laboratory Tests Test 02/26/19 07:00 White Blood Count 5.9 x10^3/uL (4.0-11.0) Red Blood Count 3.95 x10^6/uL (3.50-5.40) Hemoglobin 11.7 g/dL (12.0-15.5) Hematocrit 34.1 % (36.0-47.0) Mean Corpuscular Volume 86 fL (79-100) Mean Corpuscular Hemoglobin 30 pg (25-35) Mean Corpuscular Hemoglobin Concent 34 g/dL (31-37) Red Cell Distribution Width 11.9 % (11.5-14.5) Platelet Count 479 x10^3/uL (140-400) Neutrophils (%) (Auto) 66 % (31-73) Lymphocytes (%) (Auto) 27 % (24-48) Monocytes (%) (Auto) 6 % (0-9) Eosinophils (%) (Auto) 1 % (0-3) Basophils (%) (Auto) 0 % (0-3) Neutrophils # (Auto) 3.9 x10^3/uL (1.8-7.7) Lymphocytes # (Auto) 1.6 x10^3/uL (1.0-4.8) Monocytes # (Auto) 0.3 x10^3/uL (0.0-1.1) Eosinophils # (Auto) 0.1 x10^3/uL (0.0-0.7) Basophils # (Auto) 0.0 x10^3/uL (0.0-0.2) Sodium Level 141 mmol/L (136-145) Potassium Level 3.7 mmol/L (3.5-5.1) Chloride Level 103 mmol/L (98-107) Carbon Dioxide Level 26 mmol/L (21-32) Anion Gap 12 (6-14) Blood Urea Nitrogen 7 mg/dL (7-20) Creatinine 0.7 mg/dL (0.6-1.0) Estimated GFR (Cockcroft-Gault) 107.8 Glucose Level 83 mg/dL (70-99) Calcium Level 9.5 mg/dL (8.5-10.1) Review of Systems Review of Systems: No headache No fever/chills Assessment and Plan Assessmemt and Plan Problems Medical Problems: (1) Community acquired pneumonia Status: Acute (2) Fever Status: Acute (3) Shortness of breath Status: Acute Assessment: Community acquired pneumonia White coat syndrome Anxiety Fever SOB Nausea & vomiting Plan: Await subspecialist input Hopeful D/C if okay with cardiology PT/OT Home meds DVT prophylaxis Comment Review of Relevant I have reviewed the following items seng (where applicable) has been applied. Medications: Current Medications Medications (Trade) Dose Ordered Sig/Aleyda Route PRN Reason Start Time Stop Time Status Last Admin Dose Admin Ondansetron HCl (Zofran) 4 mg PRN Q6HRS PRN IV NAUSEA/VOMITING 02/25/19 14:15 02/25/19 22:01 Fluoxetine HCl (PROzac) 20 mg DAILY PO 02/26/19 09:00 02/26/19 08:11 Alprazolam (Xanax) 0.5 mg PRN Q6HRS PRN PO ANXIETY / AGITATION 02/25/19 21:45 02/26/19 08:11 Metoprolol Tartrate (Lopressor) 12.5 mg BID PO 02/26/19 11:30 02/26/19 12:23 MILKA EVANS III DO Feb 26, 2019 13:32
--- NOTE | 2019-02-26 14:29 | PDOC2 ---
CONSULT Date of Consult Date of Consult DATE: 02/26/19 TIME: 14:22 Reason for Consult Reason for Consult: tachycardia Referring Physician Referring Physician: Dr. Perry Identification/Chief Complaint Chief Complaint SOB Source Source: Chart review, Patient History of Present Illness Reason for Visit: The patient is a 18 year old female admitted on 02/23 for bronchitis and PNA. She has gradually improved but has been found to have episodes of sinus tachycardia. EKG show sinus tachycardia . The patient continues to feel better. She denies chest pain or dizziness. Past Medical History Cardiovascular: No pertinent hx Pulmonary: No pertinent hx, Pneumonia GI: No pertinent hx Heme/Onc: No pertinent hx Hepatobiliary: No pertinent hx Past Surgical History Past Surgical History: No pertinent history Family History Family History: No Significant Social History No ALCOHOL: none Drugs: None Current Problem List Problem List Problems Medical Problems: (1) Community acquired pneumonia Status: Acute (2) Fever Status: Acute (3) Shortness of breath Status: Acute Current Medications Current Medications Current Medications Sodium Chloride 1,000 ml @ 1,000 mls/hr Q1H IV Last administered on 02/23/19at 17:23; Start 02/23/19 at 16:07; Stop 02/23/19 at 17:45; Status DC Ceftriaxone Sodium (Rocephin) 1 gm 1X ONCE IVP Last administered on 02/23/19at 16:23; Start 02/23/19 at 16:15; Stop 02/23/19 at 16:16; Status DC Levofloxacin/ Dextrose 100 ml @ 100 mls/hr 1X ONCE IV Last administered on 02/23/19at 16:23; Start 02/23/19 at 16:15; Stop 02/23/19 at 17:14; Status DC Acetaminophen (Tylenol) 1,000 mg 1X ONCE PO Last administered on 02/23/19at 16:23; Start 02/23/19 at 16:15; Stop 02/23/19 at 16:16; Status DC Ondansetron HCl (Zofran) 4 mg PRN Q8HRS PRN IV NAUSEA/VOMITING Last administered on 02/24/19at 10:23; Start 02/23/19 at 18:45; Stop 02/24/19 at 18:44; Status DC Acetaminophen (Tylenol) 650 mg PRN Q4HRS PRN PO FEVER Last administered on 02/24/19at 08:44; Start 02/23/19 at 18:45; Stop 02/24/19 at 18:44; Status DC Ondansetron HCl (Zofran) 4 mg 1X ONCE IV Last administered on 02/23/19 20:02; Start 02/23/19 at 19:30; Stop 02/23/19 at 19:31; Status DC Albuterol/ Ipratropium (Duoneb) 3 ml RTQID NEB Last administered on 02/26/19at 13:05; Start 02/24/19 at 08:00 Albuterol/ Ipratropium (Duoneb) 3 ml 1X ONCE NEB ; Start 02/23/19 at 22:00; Stop 02/23/19 at 22:01; Status DC Ceftriaxone Sodium (Rocephin) 1 gm Q24H IVP Last administered on 02/25/19 17:37; Start 02/24/19 at 16:00 Doxycycline Hyclate (Vibra-Tab) 100 mg BID PO Last administered on 02/26/19 08:11; Start 02/23/19 at 22:00 Guaifenesin/ Codeine Phosphate (Robitussin Ac) 5 ml PRN Q6HRS PRN PO COUGH 1ST CHOICE; Start 02/23/19 at 22:00 Lactobacillus Rhamnosus (Culturelle) 1 cap BID PO Last administered on 02/26/19 08:11; Start 02/24/19 at 21:00 Ondansetron HCl (Zofran) 4 mg PRN Q6HRS PRN IV NAUSEA/VOMITING Last administered on 02/25/19 22:01; Start 02/25/19 at 14:15 Fluoxetine HCl (PROzac) 20 mg DAILY PO Last administered on 02/26/19 08:11; Start 02/26/19 at 09:00 Alprazolam (Xanax) 0.5 mg PRN Q6HRS PRN PO ANXIETY / AGITATION Last administered on 02/26/19 08:11; Start 02/25/19 at 21:45 Metoprolol Tartrate (Lopressor) 12.5 mg BID PO Last administered on 02/26/19 12:23; Start 02/26/19 at 11:30 Active Scripts Active Proair Hfa (Albuterol Sulfate) 8.5 Gm Hfa.aer.ad 1 Puff INH PRN Q6HRS PRN Tessalon Perle (Benzonatate) 100 Mg Capsule 1 Cap PO TID Azithromycin Packet (Azithromycin) 1 Gm Packet 1 Packet PO ONCE Allergies Allergies: Coded Allergies: No Known Drug Allergies (Unverified , 04/25/14) ROS General: YES: Fatigue Respiratory: YES: Shortness of breath Physical Exam General: No acute distress HEENT: Atraumatic Lungs: Other (Slightly decreased breath sounds) Heart: Other (regular rhythm) Vitals VITALS Vital Signs Date Time Temp Pulse Resp B/P (MAP) Pulse Ox O2 Delivery O2 Flow Rate FiO2 02/26/19 13:09 Room Air 02/26/19 12:23 109 103/65 02/26/19 11:00 97.7 16 98 97.7 Labs Labs Laboratory Tests Test 02/25/19 05:34 02/26/19 07:00 White Blood Count 10.7 x10^3/uL (4.0-11.0) 5.9 x10^3/uL (4.0-11.0) Red Blood Count 4.31 x10^6/uL (3.50-5.40) 3.95 x10^6/uL (3.50-5.40) Hemoglobin 12.8 g/dL (12.0-15.5) 11.7 g/dL (12.0-15.5) Hematocrit 37.0 % (36.0-47.0) 34.1 % (36.0-47.0) Mean Corpuscular Volume 86 fL (79-100) 86 fL (79-100) Mean Corpuscular Hemoglobin 30 pg (25-35) 30 pg (25-35) Mean Corpuscular Hemoglobin Concent 35 g/dL (31-37) 34 g/dL (31-37) Red Cell Distribution Width 12.3 % (11.5-14.5) 11.9 % (11.5-14.5) Platelet Count 414 x10^3/uL (140-400) 479 x10^3/uL (140-400) Neutrophils (%) (Auto) 87 % (31-73) 66 % (31-73) Lymphocytes (%) (Auto) 8 % (24-48) 27 % (24-48) Monocytes (%) (Auto) 4 % (0-9) 6 % (0-9) Eosinophils (%) (Auto) 0 % (0-3) 1 % (0-3) Basophils (%) (Auto) 0 % (0-3) 0 % (0-3) Neutrophils # (Auto) 9.4 x10^3/uL (1.8-7.7) 3.9 x10^3/uL (1.8-7.7) Lymphocytes # (Auto) 0.9 x10^3/uL (1.0-4.8) 1.6 x10^3/uL (1.0-4.8) Monocytes # (Auto) 0.4 x10^3/uL (0.0-1.1) 0.3 x10^3/uL (0.0-1.1) Eosinophils # (Auto) 0.0 x10^3/uL (0.0-0.7) 0.1 x10^3/uL (0.0-0.7) Basophils # (Auto) 0.0 x10^3/uL (0.0-0.2) 0.0 x10^3/uL (0.0-0.2) Sodium Level 140 mmol/L (136-145) 141 mmol/L (136-145) Potassium Level 3.4 mmol/L (3.5-5.1) 3.7 mmol/L (3.5-5.1) Chloride Level 101 mmol/L (98-107) 103 mmol/L (98-107) Carbon Dioxide Level 26 mmol/L (21-32) 26 mmol/L (21-32) Anion Gap 13 (6-14) 12 (6-14) Blood Urea Nitrogen 5 mg/dL (7-20) 7 mg/dL (7-20) Creatinine 0.7 mg/dL (0.6-1.0) 0.7 mg/dL (0.6-1.0) Estimated GFR (Cockcroft-Gault) 107.8 107.8 Glucose Level 97 mg/dL (70-99) 83 mg/dL (70-99) Calcium Level 9.3 mg/dL (8.5-10.1) 9.5 mg/dL (8.5-10.1) Laboratory Tests Test 02/26/19 07:00 White Blood Count 5.9 x10^3/uL (4.0-11.0) Red Blood Count 3.95 x10^6/uL (3.50-5.40) Hemoglobin 11.7 g/dL (12.0-15.5) Hematocrit 34.1 % (36.0-47.0) Mean Corpuscular Volume 86 fL (79-100) Mean Corpuscular Hemoglobin 30 pg (25-35) Mean Corpuscular Hemoglobin Concent 34 g/dL (31-37) Red Cell Distribution Width 11.9 % (11.5-14.5) Platelet Count 479 x10^3/uL (140-400) Neutrophils (%) (Auto) 66 % (31-73) Lymphocytes (%) (Auto) 27 % (24-48) Monocytes (%) (Auto) 6 % (0-9) Eosinophils (%) (Auto) 1 % (0-3) Basophils (%) (Auto) 0 % (0-3) Neutrophils # (Auto) 3.9 x10^3/uL (1.8-7.7) Lymphocytes # (Auto) 1.6 x10^3/uL (1.0-4.8) Monocytes # (Auto) 0.3 x10^3/uL (0.0-1.1) Eosinophils # (Auto) 0.1 x10^3/uL (0.0-0.7) Basophils # (Auto) 0.0 x10^3/uL (0.0-0.2) Sodium Level 141 mmol/L (136-145) Potassium Level 3.7 mmol/L (3.5-5.1) Chloride Level 103 mmol/L (98-107) Carbon Dioxide Level 26 mmol/L (21-32) Anion Gap 12 (6-14) Blood Urea Nitrogen 7 mg/dL (7-20) Creatinine 0.7 mg/dL (0.6-1.0) Estimated GFR (Cockcroft-Gault) 107.8 Glucose Level 83 mg/dL (70-99) Calcium Level 9.5 mg/dL (8.5-10.1) Assessment/Plan Assessment/Plan 1. Resolving bronchitis/PNA. Ab as per the primary service. 2. Sinus tachycardia. No acute EKG changes. Rate now 110 to 120. No dizziness. Probably secondary to #[address] on low dose beta blockers and follow up in the office. Thank you for allowing us to participate in the care of your patient. ANGIE LIU MD Feb 26, 2019 14:29
[2019-02-26 15:00] VITALS: BP 94/60
[2019-02-26] MEDS: cefTRIAXone IV Push 1 GM VIAL. IVP SCH (16:31)
[2019-02-26] MEDS ORDERED: ALPR0.5T PO (16:40)
[2019-02-26] MEDS ORDERED: METO25TA4 PO (16:40)
[2019-02-26] MEDS ORDERED: AMOX1TAB58 PO (17:17)
[2019-02-26] MEDS ORDERED: FLUO20CA16 PO (17:17)
--- NOTE | 2019-02-26 17:45 | NUR ---
Pt discharged to home. All discharge instructions, follow-ups, new medications, how and when to take BP and HR reviewed with pt, states understanding. Pt stable at time of discharge, HR 90s BP 126/74, denies dizziness or symptoms of low BP. All scripts called into pharmacy. Pt assisted to car via wheelchair with staff and family. Denies further needs.
== END 2019-02-26 17:49 | disposition home or self-care (01) | DRG 202 ==
LOC: ER 15:37 → 5 SOUTH 18:24 → 6 SOUTH 02-25 20:55 → 2 SOUTH 02-26 10:04
PROVIDERS: ADMIT Internal Medicine; ATTEND Internal Medicine
DX: J20.9 Acute bronchitis, unspecified (principal); J18.9 Pneumonia, unspecified organism; F41.9 Anxiety disorder, unspecified; J45.909 Unspecified asthma, uncomplicated; R00.0 Tachycardia, unspecified
CPT/HCPCS: 36415; 71046; 80048; 80053; 83605; 84145; 85007; 85025; 87040; 93005; 94640; 94760; J0696; J1956; J2405; J7030; J7620; G0378

== ENCOUNTER 2019-06-12 18:05 | Emergency (ER) | payer SELFPAY ==
[~2019-06-12] VITALS: Ht 162.6 cm; Wt 46.4 kg
[~2019-06-12 18:05] MED LIST changes: +ALPR0.5T PO; +AMOX1TAB58 PO; +FLUO20CA16 PO; +METO25TA4 PO
[2019-06-12 18:49] LABS: BILIRUBIN,URINE NEGATIVE (NEG); CLARITY,URINE CLEAR; COLOR,URINE YELLOW; NITRITE,URINE NEGATIVE (NEG); PROTEIN,URINE NEGATIVE (NEG-TRACE); UROBILINOGEN,URINE 0.2 mg/dL (0.2 mg/dL)
--- NOTE | 2019-06-12 18:53 | PHYS DOC ---
Past Medical History Past Medical History: No Pertinent History Past Surgical History: No Surgical History Alcohol Use: None Drug Use: None Adult General Chief Complaint Chief Complaint: ABDOMINAL PAIN HPI HPI Patient is a 18 year old female who presents to continue spent lower abdominal pain for the past or days. Pain waxes and wanes and is dull at baseline and has periods of increased spasm and is rated moderate to severe. Worse with palpation but not worse with position change for ambulation. Patient taken ibuprofen with minimal relief of symptoms. Patient denies flank pain, fevers chills and sweats. Denies urinary frequency urgency or burning. Denies vaginal discharge. Patient states she is not currently sexually active and has Implanon on in place for the past 3 years. Reports nausea with one episode of emesis yesterday. No symptoms today. No constipation or diarrhea. No prior abdominal/pelvic surgeries. No other acute symptoms or complaints.[] Review of Systems Review of Systems ROS as per HPI All other systems were reviewed and found to be within normal limits, except as documented in this note. Current Medications Current Medications Current Medications Medications (Trade) Dose Ordered Sig/Aleyda Start Time Stop Time Status Last Admin Dose Admin Acetaminophen (Tylenol) 650 mg 1X ONCE 06/12/19 19:15 06/12/19 19:16 DC 06/12/19 19:02 650 MG Info (CONTRAST GIVEN -- Rx MONITORING) 1 each PRN DAILY PRN 06/12/19 20:00 06/14/19 19:59 Iohexol (Omnipaque 240 Mg/ml) 30 ml 1X ONCE 06/12/19 20:15 06/12/19 20:16 DC 06/12/19 21:00 30 ML Iohexol (Omnipaque 300 Mg/ml) 75 ml 1X ONCE 06/12/19 20:00 06/12/19 20:01 DC 06/12/19 21:00 75 ML Lorazepam (Ativan) 0.5 mg 1X ONCE 06/12/19 22:00 06/12/19 22:01 DC 06/12/19 21:57 0.5 MG Ondansetron HCl (Zofran Odt) 4 mg 1X ONCE 06/12/19 22:00 06/12/19 22:01 DC 06/12/19 21:57 4 MG Potassium Chloride (Klor-Con) 40 meq 1X ONCE 06/12/19 20:15 06/12/19 20:16 DC 06/12/19 19:55 40 MEQ Allergies Allergies Allergies Coded Allergies Type Severity Reaction Last Updated Verified No Known Drug Allergies 04/25/14 No Physical Exam Physical Exam Constitutional: Well developed, well nourished, no acute distress, non-toxic appearance. [] HENT: Normocephalic, atraumatic, bilateral external ears normal, oropharynx moist, no oral exudates, nose normal. [] Eyes: PERRLA, EOMI, conjunctiva normal, no discharge. [] Neck: Normal range of motion, no stridor. [] Cardiovascular:Heart rate regular rhythm, no murmur [] Lungs & Thorax: Bilateral breath sounds clear to auscultation [] Abdomen: Bowel sounds normal, soft, mild diffuse mid lower abdominal pain, mild tenderness, no rebound rigidity or guarding. [] Skin: Warm, dry, no erythema. [] Back: No tenderness, no CVA tenderness. [] Extremities: No tenderness, no edema. [] Neurologic: Alert and oriented X 3, normal motor function, normal sensory function, no focal deficits noted. [] Psychologic: Affect normal, judgement normal, mood normal. [] Current Patient Data Vital Signs Vital Signs Date Time Temp Pulse Resp B/P (MAP) Pulse Ox O2 Delivery O2 Flow Rate FiO2 06/12/19 19:47 112 113/57 (75) 99 Room Air 06/12/19 18:35 98.2 17 98.2 Lab Values Laboratory Tests Test 06/12/19 18:37 06/12/19 19:08 Urine Collection Type Unknown Urine Color Yellow Urine Clarity Clear Urine pH 6.0 Urine Specific [place] 1.025 Urine Protein Negative mg/dL (NEG-TRACE) Urine Glucose (UA) Negative mg/dL (NEG) Urine Ketones (Stick) >=80 mg/dL (NEG) Urine Blood Negative (NEG) Urine Nitrite Negative (NEG) Urine Bilirubin Negative (NEG) Urine Urobilinogen Dipstick 0.2 mg/dL (0.2 mg/dL) Urine Leukocyte Esterase Negative (NEG) Urine RBC 0 /HPF (0-2) Urine WBC Rare /HPF (0-4) Urine Squamous Epithelial Cells Many /LPF Urine Bacteria Few /HPF (0-FEW) Urine Mucus Mod /LPF White Blood Count 7.0 x10^3/uL (4.0-11.0) Red Blood Count 4.92 x10^6/uL (3.50-5.40) Hemoglobin 14.6 g/dL (12.0-15.5) Hematocrit 43.1 % (36.0-47.0) Mean Corpuscular Volume 88 fL (79-100) Mean Corpuscular Hemoglobin 30 pg (25-35) Mean Corpuscular Hemoglobin Concent 34 g/dL (31-37) Red Cell Distribution Width 13.1 % (11.5-14.5) Platelet Count 254 x10^3/uL (140-400) Neutrophils (%) (Auto) 59 % (31-73) Lymphocytes (%) (Auto) 32 % (24-48) Monocytes (%) (Auto) 9 % (0-9) Eosinophils (%) (Auto) 0 % (0-3) Basophils (%) (Auto) 1 % (0-3) Neutrophils # (Auto) 4.1 x10^3/uL (1.8-7.7) Lymphocytes # (Auto) 2.2 x10^3/uL (1.0-4.8) Monocytes # (Auto) 0.6 x10^3/uL (0.0-1.1) Eosinophils # (Auto) 0.0 x10^3/uL (0.0-0.7) Basophils # (Auto) 0.0 x10^3/uL (0.0-0.2) Sodium Level 142 mmol/L (136-145) Potassium Level 3.1 mmol/L (3.5-5.1) L Chloride Level 105 mmol/L (98-107) Carbon Dioxide Level 23 mmol/L (21-32) Anion Gap 14 (6-14) Blood Urea Nitrogen 7 mg/dL (7-20) Creatinine 0.7 mg/dL (0.6-1.0) Estimated GFR (Cockcroft-Gault) 107.8 BUN/Creatinine Ratio 10 (6-20) Glucose Level 69 mg/dL (70-99) L Calcium Level 9.2 mg/dL (8.5-10.1) Total Bilirubin 0.7 mg/dL (0.2-1.0) Aspartate Amino Transferase (AST) 11 U/L (15-37) L Alanine Aminotransferase (ALT) < 6 U/L (14-59) L Alkaline Phosphatase 48 U/L (46-116) C-Reactive Protein, Quantitative 1.2 mg/L (0-3.3) Total Protein 7.5 g/dL (6.4-8.2) Albumin 4.1 g/dL (3.4-5.0) Albumin/Globulin Ratio 1.2 (1.0-1.7) Laboratory Tests 06/12/19 19:08 Laboratory Tests 06/12/19 19:08 EKG EKG [] Radiology/Procedures Radiology/Procedures [CT abdomen pelvis: Complex left ovarian cystic mass, ultrasound recommended for further evaluation per radiology report] Pelvic/transvaginal ultrasound: Likely left hemorrhagic ovarian cyst Course & Med Decision Making Course & Med Decision Making Pertinent Labs and Imaging studies reviewed. (See chart for details) [Nondescript lower abdominal/pelvic pain with findings just above hemorrhagic ovarian cyst. Normal appendix identified. Patient declines pelvic evaluation in ED. Symptoms/pain anxiety improved with tx. Will treat supportively with instructions follow-up with PCP/PROPERTY WORKER. Return precautions reviewed.] Dragon Disclaimer Dragon Disclaimer This electronic medical record was generated, in whole or in part, using a voice recognition dictation system. Departure Departure Impression: Primary Impression: Lower abdominal pain Additional Impression: Ovarian cyst Disposition: 01 HOME, SELF-CARE Condition: GOOD Referrals: NO PCP (PCP) Patient Instructions: Ovarian Cyst, [id number], Pelvic Pain, Female, [id number] Additional Instructions: You were evaluated in the emergency department for lower abdominal pelvic pain. CT and imaging studies were performed and are suggestive of renal cyst. Please Take ibuprofen for pain and tramadol as needed for additional relief. Follow-up with your local PCP and/or management trainee marketing the next 3-5 days for reevaluation. Return to the ED if new or worsening symptoms. Problem Qualifiers DENISE HAYNES DO Jun 12, 2019 18:53
[2019-06-12 19:01] LABS: BACTERIA,URINE FEW /HPF (0-FEW); RBC,URINE 0 /HPF (0-2); SQUAMOUS EPITHELIAL CELL,UR MANY /LPF; WBC,URINE RARE /HPF (0-4)
[2019-06-12] MEDS ORDERED: ACETAMINOPHEN 325 MG TABLET. PO ONE (19:15)
[2019-06-12 19:17] LABS: BASO % 1 % (0-3); EOS % 0 % (0-3); HEMATOCRIT 43.1 % (36.0-47.0); HEMOGLOBIN 14.6 g/dL (12.0-15.5); LYMPH # 2.2 x10^3/uL (1.0-4.8); LYMPH % 32 % (24-48); MEAN CORPUSCULAR HEMOGLOBIN 30 pg (25-35); MEAN CORPUSCULAR HGB CONC 34 g/dL (31-37); MEAN CORPUSCULAR VOLUME 88 fL (79-100); MONO # 0.6 x10^3/uL (0.0-1.1); MONO % 9 % (0-9); NEUT # 4.1 x10^3/uL (1.8-7.7); NEUT % 59 % (31-73); PLATELET COUNT 254 x10^3/uL (140-400); RED BLOOD COUNT 4.92 x10^6/uL (3.50-5.40); RED CELL DISTRIBUTION WIDTH 13.1 % (11.5-14.5)
[2019-06-12 19:25] LABS: ANION GAP 14 (6-14); BLOOD UREA NITROGEN 7 mg/dL (7-20); BUN/CREATININE RATIO 10 (6-20); CALCIUM 9.2 mg/dL (8.5-10.1); CARBON DIOXIDE 23 mmol/L (21-32); CHLORIDE 105 mmol/L (98-107); CREATININE 0.7 mg/dL (0.6-1.0); GFR 107.8; GLUCOSE 69 mg/dL (70-99); POTASSIUM 3.1 mmol/L (3.5-5.1); SODIUM 142 mmol/L (136-145)
[2019-06-12 19:31] LABS: ALBUMIN 4.1 g/dL (3.4-5.0); ALBUMIN/GLOBULIN RATIO 1.2 (1.0-1.7); ALK PHOS 48 U/L (46-116); ALT (SGPT) < 6 U/L (14-59); AST (SGOT) 11 U/L (15-37); C-REACTIVE PROTEIN 1.2 mg/L (0-3.3); TOTAL BILIRUBIN 0.7 mg/dL (0.2-1.0); TOTAL PROTEIN 7.5 g/dL (6.4-8.2)
[2019-06-12] MEDS ORDERED: IOHEXOL 300 MG/ML 100ML VIAL. IV ONE (20:00)
[2019-06-12] MEDS ORDERED: CONTRAST GIVEN. MC PRN (20:00)
[2019-06-12] MEDS ORDERED: IOHEXOL 240 MG/ML 50ML VIAL. PO ONE (20:15)
[2019-06-12] MEDS ORDERED: POTASSIUM CHLORIDE 20 MEQ TABLET.ER. PO ONE (20:15)
--- NOTE | 2019-06-12 21:18 | RAD ---
Exam: CT abdomen and pelvis with contrast INDICATION: Right lower quadrant pain TECHNIQUE: Sequential axial images through the abdomen and pelvis obtained following the administration of 75 mL of Omni 300 IV contrast. Sagittal and coronal reformatted images were reconstructed from the axial data and reviewed. Comparisons: None FINDINGS: Heart size. No pericardial effusion. Visualized lung bases are clear. No pleural effusion. Liver, spleen, pancreas, gallbladder and adrenals are unremarkable. Kidneys a straight symmetric enhancement. No perinephric inflammation or hydronephrosis. No renal or ureteral calculi are identified. Bladder is partially distended and appears thin-walled. Uterus is not enlarged. At the left adnexa there is a 3.6 x 2.4 cm cystic lesion, likely ovarian in etiology. Large and small bowel are unremarkable. Appendix is normal. No free intra-abdominal air or fluid. No obstruction. Abdominal aorta has a normal course and caliber. Abdominal vasculature is patent. No enlarged abdominal lymph nodes are identified. No suspicious osseous lesions or acute fractures. IMPRESSION: 1. Normal appendix. 2. Cystic lesion at the left adnexa measuring up to 3.6 cm, likely ovarian in etiology. This is incompletely characterized on CT and would be better evaluated with ultrasound. Exposure: One or more of the following in the visualized dose reduction techniques were utilized for this examination: 1. Automated exposure control 2. Adjustment of the MA and/or KV according to patient size 3. Use of iterative of reconstructive technique Electronically signed by: Tam Arredondo MD (06/12/2019 9:15 PM) [id number]
[2019-06-12] MEDS ORDERED: ONDANSETRON ODT 4 MG TAB.RAPDIS. PO ONE (22:00)
[2019-06-12] MEDS ORDERED: LORazepam 0.5 MG TABLET PO ONE (22:00)
--- NOTE | 2019-06-12 22:46 | RAD ---
PELVIS ULTRASOUND History: Pelvic pain. Comparison: CT June 12, 2019. Technique: Grayscale and color Doppler imaging of the pelvis was performed using transabdominal technique. Findings: The uterus measures 7.2 x 5.0 x 3.7 cm in length. Uterus has an unremarkable appearance. The endometrial stripe measures 3 mm, within normal limits. Right ovary measures 2.1 x 1.7 x 1.2 cm and is unremarkable. Left ovary measures 3.9 x 3.6 x 3.0 cm. Left ovarian complicated cyst measures 3.3 x 2.4 x 2.6 cm. IMPRESSION: 1. Left ovarian complicated cyst, likely hemorrhagic cyst. Electronically signed by: Jase Alas DO (06/12/2019 10:43 PM) [facility]
[2019-06-12] MEDS ORDERED: TRAM50TA PO (22:56)
[2019-06-12 23:07] VITALS: BP 114/55
== END 2019-06-12 23:11 | disposition home or self-care (01) ==
LOC: ER 18:05
DX: R10.84 Generalized abdominal pain (principal); N83.202 Unspecified ovarian cyst, left side; R10.30 Lower abdominal pain, unspecified
CPT/HCPCS: 36415; 74177; 76856; 80053; 81001; 81025; 85025; 86140; 99285; Q0162; Q9966; Q9967

== ENCOUNTER 2020-01-08 08:01 | Emergency (ER) | payer OTHER ==
[~2020-01-08] VITALS: Ht 162.6 cm; Wt 107.0 kg
[~2020-01-08 08:01] MED LIST changes: +TRAM50TA PO
[2020-01-08 09:46] LABS: BILIRUBIN,URINE NEGATIVE (NEG); COLOR,URINE AMBER; NITRITE,URINE NEGATIVE (NEG); PROTEIN,URINE 30 mg/dL (NEG-TRACE)
[2020-01-08 10:11] LABS: BACTERIA,URINE FEW /HPF (0-FEW); CLARITY,URINE HAZY; RBC,URINE >40 /HPF (0-2); SQUAMOUS EPITHELIAL CELL,UR FEW /LPF; WBC,URINE OCC /HPF (0-4)
[2020-01-08] MEDS ORDERED: IV NORMAL SALINE 1000ML BAG 1,000 ML IV SCH (10:12)
[2020-01-08] MEDS ORDERED: KETOROLAC 30 MG/ML VIAL. IVP ONE (10:15)
[2020-01-08] MEDS ORDERED: ONDANSETRON PF 4 MG/2 ML VIAL. IVP ONE (10:15)
[2020-01-08 10:33] LABS: BARBITURATES NEG (NEG); BENZODIAZEPINES NEG (NEG); CANNABINOIDS POS (NEG); COCAINE NEG (NEG); METHADONE NEG (NEG); OPIATES NEG (NEG); PHENCYCLIDINE NEG (NEG)
[2020-01-08 10:37] LABS: AMPHETAMINE/METHAMPHETAMINE NEG (NEG)
[2020-01-08 10:40] LABS: BASO % 0 % (0-3); EOS % 0 % (0-3); HEMATOCRIT 42.9 % (36.0-47.0); HEMOGLOBIN 14.9 g/dL (12.0-15.5); LYMPH # 0.9 x10^3/uL (1.0-4.8); LYMPH % 11 % (24-48); MEAN CORPUSCULAR HEMOGLOBIN 31 pg (25-35); MEAN CORPUSCULAR HGB CONC 35 g/dL (31-37); MEAN CORPUSCULAR VOLUME 88 fL (79-100); MONO # 0.4 x10^3/uL (0.0-1.1); MONO % 6 % (0-9); NEUT # 6.5 x10^3/uL (1.8-7.7); NEUT % 83 % (31-73); PLATELET COUNT 307 x10^3/uL (140-400); RED BLOOD COUNT 4.86 x10^6/uL (3.50-5.40); RED CELL DISTRIBUTION WIDTH 13.2 % (11.5-14.5); WHITE BLOOD COUNT 7.8 x10^3/uL (4.0-11.0)
--- NOTE | 2020-01-08 10:41 | PHYS DOC ---
Past Medical History Past Medical History: Anxiety, Depression, Hypertension, Other Additional Past Medical Histor: PTSD (ALEX FITCH APPRAISAL MANAGER) Past Surgical History: No Surgical History (ALEX FITCH APPRAISAL MANAGER) Smoking Status: Former Smoker Alcohol Use: None Drug Use: None (ALEX FITCH APPRAISAL MANAGER) General Adult EDM: Chief Complaint: MULTIPLE COMPLAINTS HPI: HPI: Patient is a 19 year old female who presents with states she has had low mid abdominal pain that is constant but worsens at times and wraps around to her right back for the last month. She also has the Implanon in her arm that she has had since 2016 and she would like it out today. Patient has been educated that we do not take Implanon control out in the ED and she will have to make a appointment with a education associate. She states that yesterday she did call and made appointment here at [facility] with a education associate but she does not know which doctor she will be seen yet and the appointment is for next month. She states that she does not usually get her period and she started her period yesterday. She denies going through more than 1 pad an hour. She denies vaginal discharge or sexually transmitted disease concerns. Patient denies dysuria, fever, vomiting, diarrhea, constipation, headache, dizziness, chest pain, shortness of air, cough, LOC, vision changes, numbness or tingling, focal weakness. She has a history of hypertension, anxiety and PTSD. She denies taking any medications to help her symptoms or daily. She rates her pain a 7 out of 10. (ALEX FITCH APPRAISAL MANAGER) Review of Systems: Review of Systems: Constitutional: Denies fever or chills. [] Eyes: Denies change in visual acuity. [] HENT: Denies nasal congestion or sore throat. [] Respiratory: Denies cough or shortness of breath. [] Cardiovascular: Denies chest pain or edema. [] GI: abdominal pain, nausea, denies vomiting, bloody stools or diarrhea. [] : Denies dysuria. vaginal bleeding[] Musculoskeletal: Denies back pain or joint pain. [] Integument: Denies rash. Implanon in her arm. [] Neurologic: Denies headache, focal weakness or sensory changes. [] Endocrine: Denies polyuria or polydipsia. [] Lymphatic: Denies swollen glands. [] Psychiatric: Denies depression or anxiety. [] (ALEX FITCH APRN) Heart Score: Risk Factors: Risk Factors: DM, Current or recent (<one month) smoker, HTN, HLP, family history of CAD, obesity. Risk Scores: Score 0 - 3: 2.5% MACE over next 6 weeks - Discharge Home Score 4 - 6: 20.3% MACE over next 6 weeks - Admit for Clinical Observation Score 7 - 10: 72.7% MACE over next 6 weeks - Early Invasive Strategies (ALEX FITCH APRN) Current Medications: Current Medications Medications (Trade) Dose Ordered Sig/Aleyda Start Time Stop Time Status Last Admin Dose Admin Ketorolac Tromethamine (Toradol 30mg Vial) 30 mg 1X ONCE 01/08/20 10:15 01/08/20 10:18 DC 01/08/20 10:35 30 MG Ondansetron HCl (Zofran) 4 mg 1X ONCE 01/08/20 10:15 01/08/20 10:16 DC 01/08/20 10:34 4 MG Sodium Chloride 1,000 ml @ 1,000 mls/hr Q1H 01/08/20 10:12 01/08/20 11:11 01/08/20 10:33 1,000 MLS/HR (ALEX FITCH APPRAISAL MANAGER) Allergies: Allergies: Allergies Coded Allergies Type Severity Reaction Last Updated Verified No Known Drug Allergies 04/25/14 No (ALEX FITCH APPRAISAL MANAGER) Physical Exam: PE: Constitutional: Well developed, well nourished, no acute distress, non-toxic appearance. [] HENT: Normocephalic, atraumatic, bilateral external ears normal, oropharynx moist, no oral exudates, nose normal. [] Eyes: PERRLA, EOMI, conjunctiva normal, no discharge. [] Neck: Normal range of motion, no tenderness, supple, no stridor. [] Cardiovascular:Heart rate regular rhythm, no murmur [] Lungs & Thorax: Bilateral breath sounds clear to auscultation [] Abdomen: Bowel sounds normal, soft, RLQ tenderness, no masses, no pulsatile masses. [] Skin: Warm, dry, no erythema, no rash. [] Back: No tenderness, no CVA tenderness. [] Extremities: No tenderness, no cyanosis, no clubbing, ROM intact, no edema. [] Neurologic: Alert and oriented X 3, normal motor function, normal sensory function, no focal deficits noted. [] Psychologic: Affect normal, judgement normal, mood normal. [] (ALEX FITCH APRN) Current Patient Data: Labs: Laboratory Tests Test 01/08/20 08:19 01/08/20 09:32 POC Urine HCG, Qualitative Hcg negative (Negative) Urine Collection Type Unknown Urine Color [place] Urine Clarity Hazy Urine pH 6.0 (<5.0-8.0) Urine Specific [place] >=1.030 (1.000-1.030) Urine Protein 30 mg/dL (NEG-TRACE) Urine Glucose (UA) Negative mg/dL (NEG) Urine Ketones (Stick) >=80 mg/dL (NEG) Urine Blood Large (NEG) Urine Nitrite Negative (NEG) Urine Bilirubin Negative (NEG) Urine Urobilinogen Dipstick 1.0 mg/dL (0.2 mg/dL) Urine Leukocyte Esterase Negative (NEG) Urine RBC >40 /HPF (0-2) Urine WBC Occ /HPF (0-4) Urine Squamous Epithelial Cells Few /LPF Urine Bacteria Few /HPF (0-FEW) Urine Mucus Mod /LPF Vital Signs: Vital Signs Date Time Temp Pulse Resp B/P (MAP) Pulse Ox O2 Delivery O2 Flow Rate FiO2 01/08/20 09:15 98.3 84 16 126/70 (88) 98 Room Air 98.3 (ALEX FITCH APRN) EKG: EKG: [] (ALEX FITCH APRN) Radiology/Procedures: Radiology/Procedures: [] Impression: [facility] [address] [place], [place] [id number] IMAGING REPORT Signed PATIENT: LORI CULP EACCOUNT: [id number] : 2000 LOCATION: ER AGE: 19 SEX: F EXAM STATUS: REG ER ORD. PHYSICIAN: ALEX FITCH APRN REASON: please also check appendix PROCEDURE: PELVIS COMPLETE Examination: PELVIS COMPLETE History: Right lower quadrant pain Comparison/Correlation: 06/12/2019 CT abdomen and pelvis with IV and oral contrast Findings: Transabdominal pelvic ultrasound exam was performed. Uterus measures 8.1 cm x 4.5 cm x 3.6. Endometrial thickness is 0.28 cm. Myometrium is normal. Uterus is anteflexed. No suspicious endometrial cavity contents. Right ovary measures 4.5 cm x 3 cm x 3 cm. Left ovary measures 2.0 x 2.37 x 1.90. Normal bilateral ovarian flow is evident on color Doppler imaging. Right ovarian cyst measuring up to to 3.1 cm is present. Normal ovarian echotexture is noted. Assessment of the right lower quadrant is limited due to presence of partially gas filled bowel. Impression: Right adnexal cyst is physiologic in appearance. This exam is nondiagnostic for assessment of appendicitis. Consider further evaluation CT of the abdomen and pelvis with contrast available for more definitive assessment. Electronically signed by: Javier Boles MD (01/08/2020 10:51 AM) [id number] DICTATED and SIGNED BY: JAVIER BOLES MD DATE: 01/08/20 1051 (ALEX FITCH APRN) Course & Med Decision Making: Course & Med Decision Making Pertinent Labs and Imaging studies reviewed. (See chart for details) See HPI. Abdomen is soft and slightly tender to the right low abdomen. No rebound tenderness. She states she does have some nausea intermittently for the last month. She states that the pain worsened last night so she decided to come into the hospital today instead of waiting for her appointment. She states that she did smokes marijuana to help her pain. Vital signs are within normal limits. Alert and oriented. Ambulatory with steady gait. Speaks in full complete sentences. Skin pink warm and dry. Afebrile. Patient to follow-up with her education associate as scheduled. [] (ALEX FITCH APRN) Dragon Disclaimer: Dragon Disclaimer: This electronic medical record was generated, in whole or in part, using a voice recognition dictation system. (ALEX FITCH APRN) Departure Departure Impression: Primary Impression: Ovarian cyst Qualified Codes: N83.201 - Unspecified ovarian cyst, right side Disposition: HOME, SELF-CARE Condition: STABLE Referrals: NO PCP (PCP) Patient Instructions: Ovarian Cyst Additional Instructions: Follow-up with gynecology as scheduled. Take medication as prescribed for your pain. Scripts Ibuprofen (IBUPROFEN) 600 Mg Tablet 600 MG PO PRN Q6HRS PRN for INFLAMMATION, #20 TAB Prov: ALEX FITCH APRN 01/08/20 Justicifation of Admission Dx: Justifications for Admission: Justification of Admission Dx: N/A (ALEX FITCH APRN) Attending Signature Attending Signature I have participated in the care of this patient and I have reviewed and agree with all pertinent clinical information above including history, exam, and recommendations. (DAISY GALLAGHER DO) ALEX FITCH APRN Jan 08, 2020 10:41 DAISY GALLAGHER DO Jan 08, 2020 16:02
[2020-01-08 10:50] LABS: PROTHROMBIN TIME PATIENT 15.2 SEC (11.7-14.0)
--- NOTE | 2020-01-08 10:54 | RAD ---
Examination: PELVIS COMPLETE History: Right lower quadrant pain Comparison/Correlation: 06/12/2019 CT abdomen and pelvis with IV and oral contrast Findings: Transabdominal pelvic ultrasound exam was performed. Uterus measures 8.1 cm x 4.5 cm x 3.6. Endometrial thickness is 0.28 cm. Myometrium is normal. Uterus is anteflexed. No suspicious endometrial cavity contents. Right ovary measures 4.5 cm x 3 cm x 3 cm. Left ovary measures 2.0 x 2.37 x 1.90. Normal bilateral ovarian flow is evident on color Doppler imaging. Right ovarian cyst measuring up to to 3.1 cm is present. Normal ovarian echotexture is noted. Assessment of the right lower quadrant is limited due to presence of partially gas filled bowel. Impression: Right adnexal cyst is physiologic in appearance. This exam is nondiagnostic for assessment of appendicitis. Consider further evaluation CT of the abdomen and pelvis with contrast available for more definitive assessment. Electronically signed by: Javier Sales MD (01/08/2020 10:51 AM) [id number]
[2020-01-08 10:56] LABS: CALCIUM 8.7 mg/dL (8.5-10.1); CREATININE 0.7 mg/dL (0.6-1.0); GFR 106.7; POTASSIUM 3.7 mmol/L (3.5-5.1)
[2020-01-08 11:02] LABS: ALBUMIN 4.1 g/dL (3.4-5.0); ALBUMIN/GLOBULIN RATIO 1.2 (1.0-1.7); TOTAL BILIRUBIN 0.7 mg/dL (0.2-1.0); TOTAL PROTEIN 7.6 g/dL (6.4-8.2)
[2020-01-08] MEDS ORDERED: IBUP-1007 PO (11:09)
[2020-01-08 11:16] VITALS: BP 109/61
== END 2020-01-08 11:38 | disposition home or self-care (01) ==
LOC: ER 08:01
DX: N83.291 Other ovarian cyst, right side (principal); R10.31 Right lower quadrant pain; F41.9 Anxiety disorder, unspecified; F32.9 Major depressive disorder, single episode, unspecified; I10 Essential (primary) hypertension; Z87.891 Personal history of nicotine dependence
CPT/HCPCS: 36415; 76856; 80053; 80307; 81001; 81025; 83690; 85025; 85610; 96374; 96375; 99284; J1885; J2405; J7030